=== PATIENT | female | born 1950 | race American Indian/Alaskan Native ===

== ENCOUNTER 2021-01-27 09:34 | Outpatient (CLI) | payer OTHER ==
--- NOTE | 2021-01-27 12:31 | Mammography Report ---
DIGITAL SCREENING MAMMOGRAM WITH CAD, 01/27/2021 CLINICAL INFORMATION / INDICATION: Routine screening mammography. SCREENING MAMMOGRAM TECHNIQUE: Digital bilateral 2D mammography was obtained in the craniocaudal and mediolateral obliqu e projections. This examination was interpreted with the benefit of Computer-Aided Detection analysis . COMPARISON: None currently available. FINDINGS: Breast Density: The breasts are heterogeneously dense, which may obscure small masses. No dominant mass, suspicious calcifications, or architectural distortion in either breast. There are mild benign breast arterial calcifications bilaterally. IMPRESSION: No mammographic evidence of malignancy. Follow up recommendation: Routine yearly BI-RADS Category 2: Benign. A "normal" or negative report should not discourage follow up or biopsy of a clinically significant f inding. A written summary of these findings will be mailed to the patient. The patient will be entered into a mammography reporting system which will generate a reminder letter for the patient's next appointmen t at the appropriate interval. The [employer] recommends yearly mammograms starting at age 40 and continuing as l corey as a woman is in good health. Breast MRI is recommended for women with an approximate 20-25% or greater lifetime risk of breast cancer, including women with a strong family history of breast or ova man cancer or who have been treated for Hodgkin's disease. Signer Name: Matt Montoya MD Signed: 01/27/2021 11:34 AM Workstation Name: [id number]
== END 2021-01-27 09:35 | disposition home or self-care (01) ==
LOC: MAMMO 09:34
PROVIDERS: ATTEND Internal Medicine
DX: Z12.31 Encounter for screening mammogram for malignant neoplasm of breast (principal); N64.89 Other specified disorders of breast
CPT/HCPCS: 77067

== ENCOUNTER 2021-03-08 | Inpatient (IN) | payer OTHER | END 2021-03-17 15:00 | DRG 73 | PROVIDERS: ADMIT Hospitalist | DX: G90.8 Other disorders of autonomic nervous system (principal); N17.0 Acute kidney failure with tubular necrosis; Z88.6 Allergy status to analgesic agent; Z88.0 Allergy status to penicillin; Z20.822 Contact with and (suspected) exposure to COVID-19; Z86.73 Personal history of transient ischemic attack (TIA), and cerebral infarction without residual deficits; M19.90 Unspecified osteoarthritis, unspecified site; M10.9 Gout, unspecified; Z90.710 Acquired absence of both cervix and uterus; I12.9 Hypertensive chronic kidney disease with stage 1 through stage 4 chronic kidney disease, or unspecified chronic kidney disease; N18.30 Chronic kidney disease, stage 3 unspecified; H93.13 Tinnitus, bilateral; E87.8 Other disorders of electrolyte and fluid balance, not elsewhere classified; R07.89 Other chest pain ==

== ENCOUNTER 2021-03-17 11:37 | Inpatient (IN) | payer OTHER ==
[2021-03-17] MEDS ORDERED: POLYETHYLENE GLYCOL 3350 17 GM POWDER PO PRN (12:32)
[2021-03-17] MEDS ORDERED: ALBUTEROL 2.5 MG/3 ML NEBU IH PRN (12:32)
[2021-03-17] MEDS ORDERED: ONDANSETRON 4 MG ODT TAB PO PRN (12:32)
[2021-03-17] MEDS: HEPARIN 5,000 UNIT/1 ML VIAL SUB-Q SCH ×2 (18:56→21:39)
[2021-03-17] MEDS: HYDROcodone/ACETAMINOPHEN 5-325 MG TAB PO PRN (19:49)
[2021-03-17] MEDS: ACETAMINOPHEN 325 MG TAB PO PRN (19:49)
[2021-03-17] MEDS: SODIUM BICARBONATE 650 MG TAB PO SCH (21:37)
[2021-03-17] MEDS: hydrALAZINE 20 MG/1 ML INJ IV PRN (21:37)
[2021-03-17] MEDS: MECLIZINE 25 MG TAB PO SCH (21:37)
[2021-03-17] MEDS: METOPROLOL TARTRATE 50 MG TAB PO SCH (21:37)
[2021-03-18] MEDS: hydrALAZINE 20 MG/1 ML INJ IV PRN (04:37)
[2021-03-18] MEDS: ACETAMINOPHEN 325 MG TAB PO PRN (04:42)
[2021-03-18] MEDS: HYDROcodone/ACETAMINOPHEN 5-325 MG TAB PO PRN ×3 (04:43→20:35)
[2021-03-18 05:01] LABS: Basophils % (Auto) 0.5 % (0.0-1.8); Eosinophils # (Auto) 0.2 K/mm3 (0.0-0.4); Eosinophils % (Auto) 2.7 % (0.0-4.3); Hematocrit 34.2 % (30.3-42.9); Hemoglobin 11.9 gm/dl (10.1-14.3); Lymphocytes # (Auto) 2.2 K/mm3 (1.2-5.4); Mean Corpuscular HGB Conc 35 % (30-34); Mean Corpuscular Volume 103 fl (79-97); Monocytes # (Auto) 0.8 K/mm3 (0.0-0.8); Monocytes % (Auto) 8.3 % (0.0-7.3); Platelet Count 272 K/mm3 (140-440); Red Blood Count 3.33 M/mm3 (3.65-5.03); Red Cell Distribution Width 13.5 % (13.2-15.2)
[2021-03-18] MEDS: HEPARIN 5,000 UNIT/1 ML VIAL SUB-Q SCH ×3 (05:05→23:29)
[2021-03-18] MEDS: MECLIZINE 25 MG TAB PO SCH ×3 (05:05→23:21)
[2021-03-18 05:18] LABS: Alanine Aminotransferase 17 units/L (7-56); Albumin 3.8 g/dL (3.9-5); BUN/Creatinine Ratio 14; Blood Urea Nitrogen 14 mg/dL (7-17); Calcium 8.3 mg/dL (8.4-10.2); Hemolysis Index 2
[2021-03-18] MEDS: SODIUM BICARBONATE 650 MG TAB PO SCH ×2 (08:28→23:20)
[2021-03-18] MEDS: CLOPIDOGREL 75 MG TAB PO SCH (08:28)
[2021-03-18] MEDS: PANTOPRAZOLE 40 MG TAB PO SCH (08:28)
[2021-03-18] MEDS: LOSARTAN 50 MG TAB PO SCH (08:29)
[2021-03-18] MEDS: METOPROLOL TARTRATE 50 MG TAB PO SCH ×2 (08:29→21:45)
[2021-03-18] MEDS: allopurinoL 100 MG TAB PO SCH (08:32)
--- NOTE | 2021-03-18 09:40 | History and Physical Report ---
History of Present Illness Date: 03/18/21 Date of admission: 03/17/21 12:29 Chief Complaint: Vestibular dysfunction History of present illness: 70-year-old female who was admitted on 03/05/2021 for persistent dizziness and nausea and vomiting. Patient has a history of CVA, and initial CT head showed did not show any signs of acute CVA noted. Patient was noted to have chest pain and a nuclear medicine stress test was performed with results showing no ST changes and no chest pain. Brain MRI was performed showing moderate parenchymal volume loss, microvascular ischemic changes and no indication of recent infarct. Patient was started on meclizine 50 mg every 8 hours. Home antihypertensives were changed. Patient's blood pressure on the acute side has been labile ranging from systolic of 130s to 180s. After admission last night patient did have blood pressure of 221/112 for which as needed hydralazine was given. I was notified this a.m. of the blood pressure value. I will need to adjust blood pressure medications quickly in order to get the patient's blood pressure back under control. Currently her pressure is 138/65. Patient does have mild diet counselor oumou kidney disease and was on metoprolol, losartan, hydralazine, amlodipine at home (does not remember dosing however did give me the name of Dr. Guillaume at the [facility] in [place], will attempt to call and confirm dosage), however on the acute care side she was on metoprolol and losartan only. We will look to restart home antihypertensives and monitor blood pressure closely for improvement while trying to avoid hypotensive episodes. After the patient was medically stabilized they were transferred for further rehabilitation. All available medical records have been reviewed. Plan of care was discussed with patient. Patient does complain of low back pain for which she says she has recently undergone an epidural steroid injection which proceeds all of her issues that she currently complains of. Pain is achy and throbbing as well as sometimes sharp does go down the right leg. Straight leg raise is negative. Pain is relieved by [place] at times however she does state that the current dose is not necessarily controlling her pain. Patient also has right knee pain which she relates to a prior injury from years back, will look to obtain knee x-ray if these have not been done at the [facility] previously. She does state that she is currently feeling dizzy however does not have any nausea or vomiting and the dizziness is subsiding with being in a reclined position on the bed. Headaches are persistent and not assisted by Fioricet. Past History Past Medical History: hypertension, stroke, other (CKD3, gout) Past Surgical History: appendectomy, hysterectomy, Other (shoulder surgery) Social history: Lives alone. denies: smoking (Former), alcohol abuse (Former use, not abuse) Family history: diabetes Medications and Allergies Allergies Allergy/AdvReac Type Severity Reaction Status Date / Time aspirin Allergy Nausea Verified 02/12/15 04:41 codeine Allergy Itching Verified 02/12/15 04:41 Penicillins Allergy Hives Verified 02/12/15 04:41 Home Medications Medication Instructions Recorded Confirmed Last Taken Type Metoprolol 50 mg PO BID 02/12/15 03/18/21 03/05/21 History Plavix 75 mg PO DAILY 02/12/15 03/18/21 03/05/21 History hydrALAZINE 50 mg PO TID 02/12/15 03/18/21 03/05/21 History allopurinoL [Zyloprim] 100 mg PO DAILY 05/28/15 03/18/21 03/05/21 History amLODIPine 10 mg PO DAILY 05/28/15 03/18/21 03/05/21 History ALPRAZolam [Xanax TAB] 0.25 mg PO TID PRN #20 tab 05/31/15 03/18/21 Unknown Rx Omeprazole [PriLOSEC] 40 mg PO QPM #30 cap 05/31/15 03/18/21 03/05/21 Rx Losartan 25 mg PO QDAY 03/06/21 03/18/21 03/05/21 History Sodium Bicarbonate 650 mg PO BID 03/06/21 03/18/21 03/05/21 History AtorvaSTATin [Lipitor] 40 mg PO QHS tablet 03/12/21 03/18/21 Unknown Rx Butalb/Acetamin/Caff 50-325-40 1 tab PO TID PRN tablet 03/12/21 03/18/21 Unk nown Rx [Fioricet 50-325-40] Clopidogrel [Plavix] 75 mg PO QDAY tablet 03/12/21 03/18/21 Unknown Rx Losartan [Cozaar] 25 mg PO QDAY tablet 03/12/21 03/18/21 Unknown Rx Meclizine [Antivert] 50 mg PO Q8HR tablet 03/12/21 03/18/21 Unknown Rx Metoprolol [Lopressor TAB] 50 mg PO BID tablet 03/12/21 03/18/21 Unknown Rx Sodium Bicarbonate 650 mg PO BID tablet 03/12/21 03/18/21 Unknown Rx hydrALAZINE [Apresoline TAB] 50 mg PO TID tablet 03/12/21 03/18/21 Unknown Rx traMADoL [Ultram 50 MG tab] 50 mg PO Q6H PRN tablet 03/12/21 03/18/21 Unknown Rx Active Meds: Active Medications Acetaminophen (Acetaminophen 325 Mg Tab) 650 mg PO Q6H PRN PRN Reason: Non Cardiac Pain or Temp>100.5 Last Admin: 03/18/21 04:42 Dose: 650 mg Documented by: Acetaminophen/Butalbital/Caffeine (Butalb/Acetaminophen/Caffeine Tab) 1 tab PO Q4H PRN PRN Reason: Headache Hydrocodone Bitart/Acetaminophen (Hydrocodone/Acetaminophen 5-325 Mg Tab) 1 each PO Q6H PRN PRN Reason: Pain, Moderate (4-6) Last Admin: 03/18/21 04:43 Dose: 1 each Documented by: Albuterol (Albuterol 2.5 Mg/3 Ml Nebu) 2.5 mg IH Q4HRT PRN PRN Reason: Shortness Of Breath Allopurinol (Allopurinol 100 Mg Tab) 100 mg PO QDAY [facility] Last Admin: 03/18/21 08:32 Dose: 100 mg Documented by: Atorvastatin Calcium (Atorvastatin 40 Mg Tab) 40 mg PO QHS [facility] Last Admin: 03/17/21 21:37 Dose: 40 mg Documented by: Bisacodyl (Bisacodyl 10 Mg Rect Supp) 10 mg [facility] QDAY PRN PRN Reason: Constipation Clopidogrel Bisulfate (Clopidogrel 75 Mg Tab) 75 mg PO QDAY [facility] Last Admin: 03/18/21 08:28 Dose: 75 mg Documented by: Heparin Sodium (Porcine) (Heparin 5,000 Unit/1 Ml Vial) 5,000 unit SUB-Q Q8HR [facility] Last Admin: 03/18/21 05:05 Dose: 5,000 unit Documented by: Hydralazine HCl (Hydralazine 20 Mg/1 Ml Inj) 10 mg IV Q4HR PRN PRN Reason: Hypertension Last Admin: 03/18/21 04:37 Dose: 10 mg Documented by: Losartan Potassium (Losartan 50 Mg Tab) 100 mg PO QDAY [facility] Last Admin: 03/18/21 08:29 Dose: 100 mg Documented by: Meclizine HCl (Meclizine 25 Mg Tab) 50 mg PO Q8HR [facility] Last Admin: 03/18/21 05:05 Dose: 50 mg Documented by: Metoprolol Tartrate (Metoprolol Tartrate 50 Mg Tab) 50 mg PO BID [facility] Last Admin: 03/18/21 08:29 Dose: 50 mg Documented by: Ondansetron HCl (Ondansetron 4 Mg Odt Tab) 4 mg PO Q8H PRN PRN Reason: Nausea And Vomiting Pantoprazole Sodium (Pantoprazole 40 Mg Tab) 40 mg PO QDAC [facility] Last Admin: 03/18/21 08:28 Dose: 40 mg Documented by: Polyethylene Glycol (Polyethylene Glycol 3350 17 Gm Powder) 17 gm PO QDAY PRN PRN Reason: Constipation Sodium Bicarbonate (Sodium Bicarbonate 650 Mg Tab) 650 mg PO BID [facility] Last Admin: 03/18/21 08:28 Dose: 650 mg Documented by: Review of Systems All systems: negative (ROS negative for 10 systems except as noted below with pertinent positives and negatives.) Constitutional: no fever, no chills Ears, nose, mouth and throat: tinnitis, no decreased hearing Cardiovascular: no chest pain, no palpitations, no rapid/irregular heart beat, no edema Respiratory: no cough, no shortness of breath Gastrointestinal: no abdominal pain, no nausea, no vomiting, no diarrhea, no constipation Musculoskeletal: shooting leg pain, gait dysfunction, arthritis Integumentary: no rash, no pruritis, no wounds Neurological: vertigo, headaches, gait dysfunction Psychiatric: no confusion, no irritability Exam - Exam Narrative exam: MUSCULOSKELETAL SPECIALTY EXAM CONSTITUTIONAL: Well developed, well nourished, appropriately groomed LYMPHATIC: No appreciable abnormalities palpable in neck EENT: EOMI. Oropharynx clear. Hearing intact to soft voice RESPIRATORY: Clear to auscultation bilaterally, no increased work of breathing CARDIOVASCULAR: Regular Rate/ Rhythm, no swelling, edema or tenderness in BUE or BLE. All extremities warm. GI: + bowel sounds, soft, NTTP, nondistended. INTEGUMENTARY: Normal, no lesion, rash, masses or bruising noted in extremities. MUSCULOSKELETAL: BUE and BLE normal without defect, crepitus, subluxation, effusion, arthritic changes or TTP. BUE 4+/5, good ROM, with normal tone. BLE 4+/5 good ROM, with normal tone Straight leg raise negative bilaterally NEURO: Slight left facial droop, tongue protrudes left. Sensation intact in all extremities with decreased sensation on the right extremities. Reflexes 3+ bilaterally at biceps, brachioradialis and patella. No clonus at ankles. Coordination intact in BUE. No tremor noted in 4 extremities. POSTURE and GAIT: Sitting posture good. Balance and gait deferred until seen with therapy. PSYCH: Alert, oriented x3, affect appears normal. Insight appears intact. - Constitutional Vitals: Vital Signs - 12hr 03/17/21 03/18/21 03/18/21 21:37 00:17 02:34 Temperature Pulse Rate 67 70 70 Respiratory 16 Rate Blood Pressure 177/82 170/77 Blood Pressure 149/65 [Left] O2 Sat by Pulse 98 Oximetry 03/18/21 03/18/21 03/18/21 04:25 04:35 04:37 Temperature 122.0 F H 97.9 F Pulse Rate 75 Respiratory 16 Rate Blood Pressure 221/112 189/87 Blood Pressure [Left] O2 Sat by Pulse 94 Oximetry 03/18/21 03/18/21 03/18/21 06:14 06:24 07:22 Temperature 97.9 F 98.8 F Pulse Rate 69 Respiratory 18 Rate Blood Pressure 138/65 Blood Pressure 153/87 [Left] O2 Sat by Pulse 95 Oximetry 03/18/21 08:29 Temperature Pulse Rate 69 Respiratory Rate Blood Pressure 138/65 Blood Pressure [Left] O2 Sat by Pulse Oximetry - Labs CBC & Chem 7: 03/18/21 04:09 03/18/21 04:09 Labs: Laboratory Results - last 72 hr 03/18/21 03/18/21 04:09 04:09 WBC 9.2 RBC 3.33 L Hgb 11.9 Hct 34.2 MCV 103 H MCH 36 H MCHC 35 H RDW 13.5 Plt Count 272 Lymph % (Auto) 24.0 [place] % (Auto) 8.3 H Eos % (Auto) 2.7 Baso % (Auto) 0.5 Lymph # (Auto) 2.2 [place] # (Auto) 0.8 Eos # (Auto) 0.2 Baso # (Auto) 0.0 Seg Neutrophils % 64.5 Seg Neutrophils # 5.9 Sodium 139 Potassium 3.8 Chloride 104.5 Carbon Dioxide 22 Anion Gap 16 BUN 14 Creatinine 1.0 Estimated GFR > 60 BUN/Creatinine Ratio 14 Glucose 109 H Calcium 8.3 L Total Bilirubin 0.30 AST 15 ALT 17 Alkaline Phosphatase 52 Total Protein 6.7 Albumin 3.8 L Albumin/Globulin Ratio 1.3 Assessment and Plan Assessment and plan: Patient was assessed and evaluated for Acute Inpatient Rehab Unit. Due to the patients above-mentioned medical complexity, along with decreased functional mobility and self care, this patient continues to require and be appropriate for a comprehensive, multidisciplinary [id number] rehabilitation program. These needs cannot be met in an outpatient or other less intensive setting. The patient would continue to benefit from skilled therapy intervention for at least 3 hours per day, five days a week, with techniques specific to the needs of the patient to improve function, activities of daily living, and reintegration into the community. The patient continues to require: -- OT to improve ROM, self-care, and learn use of adaptive equipment -- PT to improve strength and balance, functional transfers, and ambulation with energy conservation techniques to improve functional mobility -- 24 hour RN to ensure and prevent skin breakdown, promote progressive independence while ensuring safety, ensure education regarding medications, and incorporation of the rehabilitation at the bedside -- 24 hour Manager Engagement to coordinate this interdisciplinary program, and to manage/prevent complications as a result of the patients medical comorbidities. -Plan of care by day 4 -Weekly team conferences With such a program, there is a reasonable certainty that the goals individu alized for this patient can be achieved within the specified length of stay. Vestibular dysfunction: Continue therapy and improve patient's ability to perform ADLs and ambulation without loss of balance. Meclizine will be continued at current dosing with eye towards reducing dose as able. Vestibular therapy has been ordered. Old CVA: Continue secondary stroke prevention measures including antiplatelet, statin, blood pressure control. Hypertensive emergency: Medications were adjusted on acute care side. Patient is uncertain of dosing but does know the name of the medication she is taking prior to admission which include losartan, amlodipine, hydralazine and metoprolol. Am trying to contact Dr. Guillaume at [facility] [place] for confirmation of the patient's medication list. She is currently being controlled on medications that were started at the acute care side as well as as needed hydralazine. [facility] is currently taking losartan 100 mg daily, amlodipine 10 mg daily, hydralazine 50 mg 3 times daily, metoprolol 75 mg twice daily. We will restart these medications and monitor blood pressure CKD 3: Continue to monitor renal function which appears to be fairly well controlled currently. This was diagnosed by an outside medication aide, avoid nephrotoxic medications. Nephrology consult if needed. Headache: Patient states that Fioricet is not touching the headache but the [place] does work. She is requesting to have higher doses of [place] for both the headache and the back pain and we will increase that for a brief period of time as discussed with the patient. Back pain with radiation down the right leg: [facility], will attempt to get results of that imaging. Also underwent epidural steroid injection which she relates to the start of current symptoms. We will continue therapy and attempt symptomatic improvement. Right knee pain: We will try to find out if the [facility] has performed any knee x-rays in the past. This looks and feels like arthritis, will look to start Voltaren gel and further modalities to improve pain and gather x-rays if these have not been done recently. ADL dysfunction: OT will work on improving ability to perform ADLs (including assistive devices) to increase independence and decrease caregiver burden and improve functional transfers and mobility training. Difficulty walking: PT will work on gait training and proper use of assistive devices and advance as appropriate to use of stairs and outside ambulation on uneven surfaces. Unsteadiness on feet: PT will work on improving static and dynamic sitting and standing balance as well as proper use of assistive devices to decrease risk of falls. Abnormality of gait: PT will work to improve safety and efficiency of gait through neuromotor training and gait training along with instruction on proper use of assistive devices. Muscle weakness: PT & OT will work on strengthening exercises to improve functional strength including mixture of closed and open kinetic chain exercises. Debility: PT & OT will work on improving overall functional status to improve participation with ADLs, mobility and social involvement. Fatigue: PT & OT will work on improving endurance through aerobic exercises and therapeutic activity while monitoring patients tolerance for activity and vital signs as needed. DVT ppx: Heparin 3 times daily Pain: Continue physical modalities in therapy and pain medications as needed to achieve functional pain control. Sleep: Monitor and address as needed. Bowel: Monitor and address as needed. Appetite: Monitor and address as needed. Discharge planning: Pending therapy progress and care plan meeting. Will continue discussion with therapy team, SW, patient and family. Restrictions/ Precautions: Falls WB status: FWB Functional Hx: ADLs: Independent Cognition: Independent Mobility: No AD Barriers to Discharge: Decreased mobility and ability to perform self care, balance deficits, weakness Estimated Length of Stay: 1014 days Discharge Destination: Home alone POST ADMISSION PHYSICIAN EVALUATION I have examined the patient and find that functional status, medical condition and appropriateness for IR[facility] admission are essentially unchanged from those described in the preadmission screening. Will monitor for worsening disequilibrium, falls, DVT/PE, bowel and bladder complications and complications due to hypertensive emergency, renal disease, secondary stroke, gout and electrolyte abnormalities. Will attempt to avoid occurrence of these issues or treat them if they present themselves.
--- NOTE | 2021-03-18 13:50 | XRay Report ---
RIGHT KNEE 3 VIEWS INDICATION: knee pain. COMPARISON: None. IMPRESSION: No acute osseous or soft tissue abnormality. Minimal tibial spine spurring and retrop atellar spurring are identified. Signer Name: Deniz Torres Jr, MD Signed: 03/18/2021 1:45 PM Workstation Name: [id number]
[2021-03-18] MEDS: hydrALAZINE 25 MG TAB PO SCH ×2 (13:56→21:45)
[2021-03-19] MEDS: hydrALAZINE 20 MG/1 ML INJ IV PRN (01:44)
[2021-03-19] MEDS: MECLIZINE 25 MG TAB PO SCH ×3 (05:46→22:32)
[2021-03-19] MEDS: hydrALAZINE 25 MG TAB PO SCH ×3 (05:46→22:32)
[2021-03-19] MEDS: HEPARIN 5,000 UNIT/1 ML VIAL SUB-Q SCH ×3 (05:48→22:33)
[2021-03-19] MEDS: SODIUM BICARBONATE 650 MG TAB PO SCH ×2 (08:43→22:33)
[2021-03-19] MEDS: HYDROcodone/ACETAMINOPHEN 10-325MG TAB PO PRN ×3 (08:43→22:33)
[2021-03-19] MEDS: allopurinoL 100 MG TAB PO SCH (08:44)
[2021-03-19] MEDS: LOSARTAN 50 MG TAB PO SCH (08:44)
[2021-03-19] MEDS: METOPROLOL TARTRATE 50 MG TAB PO SCH ×2 (08:44→22:32)
[2021-03-19] MEDS: amLODIPine 10 MG TAB PO SCH (08:44)
[2021-03-19] MEDS: PANTOPRAZOLE 40 MG TAB PO SCH (08:45)
[2021-03-19] MEDS: CLOPIDOGREL 75 MG TAB PO SCH (08:45)
--- NOTE | 2021-03-19 11:53 | Progress Note ---
Subjective Date of service: 03/19/21 Principal diagnosis: Vestibular dysfunction Interval history: 70-year-old female who was admitted on 03/05/2021 for persistent dizziness and nausea and vomiting. Patient has a history of CVA, and initial CT head showed did not show any signs of acute CVA noted. Patient was noted to have chest pain and a nuclear medicine stress test was performed with results showing no ST changes and no chest pain. Brain MRI was performed showing moderate parenchymal volume loss, microvascular ischemic changes and no indication of recent infarct. Patient was started on meclizine 50 mg every 8 hours. Home antihypertensives were changed. Patient's blood pressure on the acute side has been labile ranging from systolic of 130s to 180s. After admission last night patient did have blood pressure of 221/112 for which as needed hydralazine was given. I was notified this a.m. of the blood pressure value. I will need to adjust blood pressure medications quickly in order to get the patient's blood pressure back under control. Currently her pressure is 138/65. Patient does have mild chronic kidney disease and was on metoprolol, losartan, hydralazine, amlodipine at home (does not remember dosing however did give me the name of Dr. Guillaume at the [facility] in [place], will attempt to call and confirm dosage), however on the acute care side she was on metoprolol and losartan only. We will look to restart home antihypertensives and monitor blood pressure closely for improvement while trying to avoid hypotensive episodes. Interval History: Patient is participating in therapy and making reasonable progress. Taking rest breaks as needed. +BM. Denies pain, palpitations, dyspnea, cough, N/V, weakness, or joint pain. Vestibular dysfunction: Continue therapy for improvement in balance, ADLs and ambulation. Vestibular therapy as patient tolerates it. Continue meclizine. Chronic CVA: Continue secondary stroke prevention measures. No signs of wor sening neurologic function, shoulder-hand syndrome, post drug depression. Hypertension with initial hypertensive emergency: Medications have been adjusted to include patient's home dosing after calling the [facility] that [facility]. Initially blood pressure is slightly improved this morning however the patient did have to have IV hydralazine last night. We will continue to monitor blood pressure on a close basis and adjust medications as needed to control her blood pressure. Goal less than 140/90 and avoid hypotension. CKD 3: Patient's renal labs have been normal since admission. She states that she was diagnosed with CKD 3 by an outside powerhouse attendant. We will continue to avoid any nephrotoxic medications and monitor for worsening renal function. Headache: Slightly better today, still does not respond well to Fioricet R Tylenol which the patient has used in the past on the acute care side as well as with us. Does state that [place] seems to allow her to at least tolerate the pain and drift off to sleep. Have discussed with her that we would not build to continue with increased dose of [place] ongoing and that we will continue to monitor and try to address the issues causing the headache. Back pain with radiation down right leg: Negative straight leg raise. [facility] have any recent imaging of the patient's back. Patient does state that recently she received lumbar epidural steroid injection which is in part what she believes caused some of the issues she is currently having. I do not know that the [place] is connected to her current issues but we will continue to watch for any overt signs of issues coming from her low back and address as needed. If the patient does need further work-up and care she will need to have that done as an outpatient to include further MRIs and or other injections. May benefit from needle EMG/NCS. Right knee pain: X-ray ordered yesterday, image and report reviewed personally. Her knee actually looks to be in very good shape, uncertain why she had so much pain with that yesterday. Do not see joint space narrowing are significant arthritis, per the report there is minimal spurring noted in a couple of areas. Did discuss with the patient and we can trial Voltaren gel to see if that im proves her knee pain. All records, vitals, labs and medications were reviewed. No other issues per patient, nursing or therapy. Objective - Exam Narrative Exam: MUSCULOSKELETAL SPECIALTY EXAM CONSTITUTIONAL: Well developed, well nourished, appropriately groomed EENT: Hearing intact to soft voice RESPIRATORY: Clear to auscultation bilaterally, no increased work of breathing CARDIOVASCULAR: Regular Rate/ Rhythm, no swelling, edema or tenderness in BUE or BLE. All extremities warm. GI: + bowel sounds, soft, NTTP, nondistended. INTEGUMENTARY: Normal, no lesion, rash, masses or bruising noted in extremities. MUSCULOSKELETAL: BUE and BLE normal without defect, crepitus, subluxation, effusion, arthritic changes or TTP. BUE 4+/5, good ROM, with normal tone. BLE 4+/5 good ROM, with normal tone NEURO: Slight left facial droop, tongue protrudes left. Sensation intact in all extremities with decreased sensation on the right extremities. No tremor noted in 4 extremities. POSTURE and GAIT: Sitting posture good. Balance and gait deferred until seen with therapy. PSYCH: Alert, oriented x3, affect appears normal. Insight appears intact. - Constitutional Vitals: Vital Signs - 12hr 03/19/21 03/19/21 03/19/21 01:44 05:11 05:46 Temperature 98.5 F Pulse Rate 78 Respiratory 16 Rate Respiratory Rate [chest pain] Blood Pressure 167/64 142/72 Blood Pressure 142/72 [Left] O2 Sat by Pulse 97 Oximetry 03/19/21 03/19/21 03/19/21 07:29 08:43 08:44 Temperature 98.9 F Pulse Rate 70 70 Respiratory 18 20 Rate Respiratory Rate [chest pain] Blood Pressure 156/69 151/69 Blood Pressure [Left] O2 Sat by Pulse 96 Oximetry 03/19/21 10:00 Temperature Pulse Rate Respiratory Rate Respiratory 18 Rate [chest pain] Blood Pressure Blood Pressure [Left] O2 Sat by Pulse Oximetry - Allied health notes Allied health notes reviewed: nursing, PT, OT FIMS assessment as documented by PT/OT/ST: Grooming Patient cleans teeth/dentures: Yes Patient [place]/brushes hair: Yes Patient washes, rinses and Yes dries face: Patient washes, rinses and Yes dries hands: Patient performs (no make-up/ 4/4 (100%) shaving): Grooming FIM Score 5. Supervision ([place] applies toothpaste or opens containers.) Toileting Toileting Device Commode over Toilet,Grab Bar Patient able to: Adjust clothes before,Clean self,Adjust clothes after Patient able to perform: 3/3 (100%) Toileting FIM Score 4. Minimal Assistance (Patient = 75% or more. Needs touching.) Social interaction/Memory/Problem solving Social Interaction FIM Score 5. Supervision (Needs supv. <10%. Needs encouragement to participate.) Memory FIM Score 5. Supervision (Needs cueing <10%, stressful/ unfamiliar situations.) Problem Solving FIM Score 5. Supervision (Needs cueing <10% to solve routine problems.) Transfers Mode of Locomotion: Wheelchair Bed/Chair/Wheelchair Transfers 4. Minimal Assistance (Patient = 75% or more. FIM Score Needs touching.) Locomotion- walk/wheelchair Ambulation Distance 170 Eating Eating FIM Score 5. Supervision/Set-Up (Needs help w/ containers, cutting meat, etc.) Dressing-Upper body Patient retrieves clothing Yes items: Upper Body Dressing FIM Score 5. Supv./Set-Up ([place] sets out clothes or applies pros./orth.) Dressing-lower body Patient retrieves clothing Yes items: Lower Body Dressing FIM Score 5. Supv./Set-Up ([place] sets out clothes or applies pros./orth.) - Labs CBC & Chem 7: 03/18/21 04:09 03/18/21 04:09 Labs: Laboratory Results - last 72 hr 03/18/21 03/18/21 04:09 04:09 WBC 9.2 RBC 3.33 L Hgb 11.9 Hct 34.2 MCV 103 H MCH 36 H MCHC 35 H RDW 13.5 Plt Count 272 Lymph % (Auto) 24.0 [place] % (Auto) 8.3 H Eos % (Auto) 2.7 Baso % (Auto) 0.5 Lymph # (Auto) 2.2 [place] # (Auto) 0.8 Eos # (Auto) 0.2 Baso # (Auto) 0.0 Seg Neutrophils % 64.5 Seg Neutrophils # 5.9 Sodium 139 Potassium 3.8 Chloride 104.5 Carbon Dioxide 22 Anion Gap 16 BUN 14 Creatinine 1.0 Estimated GFR > 60 BUN/Creatinine Ratio 14 Glucose 109 H Calcium 8.3 L Total Bilirubin 0.30 AST 15 ALT 17 Alkaline Phosphatase 52 Total Protein 6.7 Albumin 3.8 L Albumin/Globulin Ratio 1.3 Assessment and Plan Vestibular dysfunction: Continue therapy and improve patient's ability to perform ADLs and ambulation without loss of balance. Meclizine will be continued at current dosing with eye towards reducing dose as able. Vestibular therapy has been ordered. Old CVA: Continue secondary stroke prevention measures including antiplatelet, statin, blood pressure control. Hypertensive emergency: [facility], patient is currently taking losartan 100 mg daily, amlodipine 10 mg daily, hydralazine 50 mg 3 times daily, metoprolol 75 mg twice daily. We will restart these medications and monitor blood pressure and adjust as needed for normotension with goal of <140/90 while avoiding hypotension. CKD 3: Continue to monitor renal function which appears to be fairly well controlled currently. This was diagnosed by an outside powerhouse attendant, avoid nephrotoxic medications. Nephrology consult if needed. Headache: Patient states that Fioricet is not touching the headache but the [place] does work. She is requesting to have higher doses of [place] for both the headache and the back pain and we will increase that for a brief period of time as discussed with the patient. Back pain with radiation down the right leg: Apparently patient had a MRI at the outside [facility], will attempt to get results of that imaging. Also underwent epidural steroid injection which she relates to the start of current symptoms. We will continue therapy and attempt symptomatic improvement. Right knee pain: We will try to find out if the [facility] has performed any knee x-rays in the past. This looks and feels like arthritis, will look to start Voltaren gel and further modalities to improve pain and gather x-rays if these have not been done recently. ADL dysfunction: OT will work on improving ability to perform ADLs (including assistive devices) to increase independence and decrease caregiver burden and improve functional transfers and mobility training. Difficulty walking: PT will work on gait training and proper use of assistive devices and advance as appropriate to use of stairs and outside ambulation on uneven surfaces. Unsteadiness on feet: PT will work on improving static and dynamic sitting and standing balance as well as proper use of assistive devices to decrease risk of falls. Abnormality of gait: PT will work to improve safety and efficiency of gait through neuromotor training and gait training along with instruction on proper use of assistive devices. Muscle weakness: PT & OT will work on strengthening exercises to improve functional strength including mixture of closed and open kinetic chain exercises. Debility: PT & OT will work on improving overall functional status to improve participation with ADLs, mobility and social involvement. Fatigue: PT & OT will work on improving endurance through aerobic exercises and therapeutic activity while monitoring patients tolerance for activity and vital signs as needed. DVT ppx: Heparin 3 times daily Pain: Continue physical modalities in therapy and pain medications as needed to achieve functional pain control. Sleep: Monitor and address as needed. Bowel: Monitor and address as needed. Appetite: Monitor and address as needed. Discharge planning: Pending therapy progress and care plan meeting. Will continue discussion with therapy team, SW, patient and family. Restrictions/ Precautions: Falls WB status: FWB Functional Hx: ADLs: Independent Cognition: Independent Mobility: No AD Barriers to Discharge: Decreased mobility and ability to perform self care, balance deficits, weakness Estimated Length of Stay: 1014 days Discharge Destination: Home alone
[2021-03-19] MEDS: DICLOFENAC SODIUM 1% TOPICAL GEL 100 GM TP SCH ×2 (15:11→20:00)
[2021-03-20] MEDS: HEPARIN 5,000 UNIT/1 ML VIAL SUB-Q SCH ×3 (06:40→22:22)
[2021-03-20] MEDS: MECLIZINE 25 MG TAB PO SCH ×3 (06:40→22:20)
[2021-03-20] MEDS: hydrALAZINE 25 MG TAB PO SCH ×3 (06:40→22:21)
[2021-03-20] MEDS: allopurinoL 100 MG TAB PO SCH (09:30)
[2021-03-20] MEDS: SODIUM BICARBONATE 650 MG TAB PO SCH ×2 (09:30→22:20)
[2021-03-20] MEDS: METOPROLOL TARTRATE 50 MG TAB PO SCH ×2 (09:30→22:21)
[2021-03-20] MEDS: CLOPIDOGREL 75 MG TAB PO SCH (09:30)
[2021-03-20] MEDS: amLODIPine 10 MG TAB PO SCH (09:30)
[2021-03-20] MEDS: LOSARTAN 50 MG TAB PO SCH (09:30)
[2021-03-20] MEDS: PANTOPRAZOLE 40 MG TAB PO SCH (09:30)
[2021-03-20] MEDS: DICLOFENAC SODIUM 1% TOPICAL GEL 100 GM TP SCH ×3 (09:30→20:33)
--- NOTE | 2021-03-20 10:09 | Progress Note ---
Subjective Date of service: 03/20/21 Principal diagnosis: Vestibular dysfunction Interval history: 70-year-old female who was admitted on 03/05/2021 for persistent dizziness and nausea and vomiting. Patient has a history of CVA, and initial CT head showed did not show any signs of acute CVA noted. Patient was noted to have chest pain and a nuclear medicine stress test was performed with results showing no ST changes and no chest pain. Brain MRI was performed showing moderate parenchymal volume loss, microvascular ischemic changes and no indication of recent infarct. Patient was started on meclizine 50 mg every 8 hours. Home antihypertensives were changed. Patient's blood pressure on the acute side has been labile ranging from systolic of 130s to 180s. After admission last night patient did have blood pressure of 221/112 for which as needed hydralazine was given. I was notified this a.m. of the blood pressure value. I will need to adjust blood pressure medications quickly in order to get the patient's blood pressure back under control. Currently her pressure is 138/65. Patient does have mild chronic kidney disease and was on metoprolol, losartan, hydralazine, amlodipine at home (does not remember dosing however did give me the name of Dr. Guillaume at the [facility] in [place], will attempt to call and confirm dosage), however on the acute care side she was on metoprolol and losartan only. We will look to restart home antihypertensives and monitor blood pressure closely for improvement while trying to avoid hypotensive episodes. Interval History: Patient is participating in therapy and making reasonable progress. Taking rest breaks as needed. +BM. Denies pain, palpitations, dyspnea, cough, N/V, weakness, or joint pain. Vestibular dysfunction: Continue therapy for improvement in balance, ADLs and ambulation. Vestibular therapy as patient tolerates it. Continue meclizine. Patient states that dizziness is subsiding and much better when in bed, still giving her problems when standing with occasional loss of balance. We will asked therapy to do orthostatic checks to ensure that blood pressures not playing an issue as well. Chronic CVA: Continue secondary stroke prevention measures. No signs of worsening neurologic function, shoulder-hand syndrome, post stroke depression. Hypertension with initial hypertensive emergency: Medications have been adjusted to include patient's home dosing after calling the [facility] that [facility]. Did not require IV hydralazine last night. Appears that she is tolerating all doses of her current medication and blood pressure is improving. We will continue to monitor blood pressure on a close basis and adjust medications as needed to control her blood pressure. Goal less than 140/90 and avoid hypot ension. CKD 3: Patient's renal labs have been normal since admission. She states that she was diagnosed with CKD 3 by an outside project engineering manager. We will continue to avoid any nephrotoxic medications and monitor for worsening renal function. Headache: Headache seems to be variable, still does not respond well to Fioricet or Tylenol which the patient has used in the past on the acute care side as well as with us. Does state that [place] seems to allow her to at least tolerate the pain and drift off to sleep. Have discussed with her that we would not build to continue with increased dose of [place] ongoing and that we will continue to monitor and try to address the issues causing the headache. Back pain with radiation down right leg: Negative straight leg raise. [facility] have any recent [facility] of the patient's back. Patient does state that recently she received lumbar epidural steroid injection which is in part what she believes caused some of the issues she is currently having. I do not think that the [place] is connected to her current issues but we will continue to watch for any overt signs of issues coming from her low back and address as needed. If the patient does need further work-up and care she will need to have that done as an outpatient to include further MRIs and or other injections. May benefit from needle EMG/NCS. Right knee pain: X-ray ordered yesterday, image and report reviewed personally. Her knee actually looks to be in very good shape, uncertain why she had so much pain. Do not see joint space narrowing or significant arthritis, per the report there is minimal spurring noted in a couple of areas. Did discuss with the patient and we can trial Voltaren gel to see if that improves her knee pain. Seems slightly better today All records, vitals, labs and medications were reviewed. No other issues per patient, nursing or therapy. Approximately 40 minutes spent on patient care today with greater than 50% of that time utilized for counseling coordinating care. Discussed with the patient in depth her symptoms concerning vestibular dysfunction and possible etiologies for this as well as ongoing treatment options. Also discussed discharge, discharge planning and follow-up with neurology. Objective - Exam Narrative Exam: MUSCULOSKELETAL SPECIALTY EXAM CONSTITUTIONAL: Well developed, well nourished, appropriately groomed EENT: Hearing intact to soft voice RESPIRATORY: Clear to auscultation bilaterally, no increased work of breathing CARDIOVASCULAR: Regular Rate/ Rhythm, no swelling, edema or tenderness in BUE or BLE. All extremities warm. GI: + bowel sounds, soft, NTTP, nondistended. INTEGUMENTARY: Normal, no lesion, rash, masses or bruising noted in extremities. MUSCULOSKELETAL: BUE and BLE normal without defect, crepitus, subluxation, effusion, arthritic changes or TTP. BUE 4+/5, good ROM, with normal tone. BLE 4+/5 good ROM, with normal tone NEURO: Slight left facial droop, tongue protrudes left. Sensation intact in all extremities with decreased sensation on the right extremities. No tremor noted in 4 extremities. POSTURE and GAIT: Sitting posture good. PSYCH: Alert, oriented x3, affect appears normal. Insight appears intact. - Constitutional Vitals: Vital Signs - 12hr 03/19/21 03/19/21 03/20/21 22:32 22:33 00:15 Temperature 98.7 F Pulse Rate 79 79 Respiratory 18 16 Rate Blood Pressure 146/71 Blood Pressure 134/62 [Left] O2 Sat by Pulse 95 Oximetry 03/20/21 03/20/21 03/20/21 05:06 06:40 07:19 Temperature 97.7 F 98.0 F Pulse Rate 73 73 67 Respiratory 16 22 Rate Blood Pressure 132/71 140/64 Blood Pressure 132/71 [Left] O2 Sat by Pulse 99 96 Oximetry - Allied health notes Allied health notes reviewed: nursing, PT, OT FIMS assessment as documented by PT/OT/ST: Grooming Patient cleans teeth/dentures: Yes Patient [place]/brushes hair: Yes Patient washes, rinses and Yes dries face: Patient washes, rinses and Yes dries hands: Patient performs (no make-up/ 4/4 (100%) shaving): Grooming FIM Score 5. Supervision ([place] applies toothpaste or opens containers.) Toileting Toileting Device Commode over Toilet,Grab Bar Patient able to: Adjust clothes before,Clean self,Adjust clothes after Patient able to perform: 3/3 (100%) Toileting FIM Score 4. Minimal Assistance (Patient = 75% or more. Needs touching.) Social interaction/Memory/Problem solving Social Interaction FIM Score 5. Supervision (Needs supv. <10%. Needs encouragement to participate.) Memory FIM Score 5. Supervision (Needs cueing <10%, stressful/ unfamiliar situations.) Problem Solving FIM Score 5. Supervision (Needs cueing <10% to solve routine problems.) Transfers Mode of Locomotion: Wheelchair Bed/Chair/Wheelchair Transfers 4. Minimal Assistance (Patient = 75% or more. FIM Score Needs touching.) Locomotion- walk/wheelchair Ambulation Distance 170 Eating Eating FIM Score 5. Supervision/Set-Up (Needs help w/ containers, cutting meat, etc.) Dressing-Upper body Patient retrieves clothing Yes items: Upper Body Dressing FIM Score 5. Supv./Set-Up ([place] sets out clothes or applies pros./orth.) Dressing-lower body Patient retrieves clothing Yes items: Lower Body Dressing FIM Score 5. Supv./Set-Up ([place] sets out clothes or applies pros./orth.) - Labs CBC & Chem 7: 03/18/21 04:09 03/18/21 04:09 Labs: Laboratory Results - last 72 hr 03/18/21 03/18/21 04:09 04:09 WBC 9.2 RBC 3.33 L Hgb 11.9 Hct 34.2 MCV 103 H MCH 36 H MCHC 35 H RDW 13.5 Plt Count 272 Lymph % (Auto) 24.0 [place] % (Auto) 8.3 H Eos % (Auto) 2.7 Baso % (Auto) 0.5 Lymph # (Auto) 2.2 [place] # (Auto) 0.8 Eos # (Auto) 0.2 Baso # (Auto) 0.0 Seg Neutrophils % 64.5 Seg Neutrophils # 5.9 Sodium 139 Potassium 3.8 Chloride 104.5 Carbon Dioxide 22 Anion Gap 16 BUN 14 Creatinine 1.0 Estimated GFR > 60 BUN/Creatinine Ratio 14 Glucose 109 H Calcium 8.3 L Total Bilirubin 0.30 AST 15 ALT 17 Alkaline Phosphatase 52 Total Protein 6.7 Albumin 3.8 L Albumin/Globulin Ratio 1.3 Assessment and Plan Vestibular dysfunction: Continue therapy and improve patient's ability to perform ADLs and ambulation without loss of balance. Meclizine will be continued at current dosing with eye towards reducing dose as able. Vestibular therapy has been ordered. Old CVA: Continue secondary stroke prevention measures including antiplatelet, statin, blood pressure control. Hypertensive emergency: [facility], patient is currently taking losartan 100 mg daily, amlodipine 10 mg daily, hydralazine 50 mg 3 times daily, metoprolol 75 mg twice daily. We will restart these medications and monitor blood pressure and adjust as needed for normotension with goal of <140/90 while avoiding hypotension. CKD 3: Continue to monitor renal function which appears to be fairly well controlled currently. This was diagnosed by an outside project engineering manager, avoid nephrotoxic medications. Nephrology consult if needed. Headache: Patient states that Fioricet is not touching the headache but the [place] does work. She is requesting to have higher doses of [place] for both the headache and the back pain and we will increase that for a brief period of time as discussed with the patient. Back pain with radiation down the right leg: Apparently [facility], will attempt to get results of that imaging. Also underwent epidural steroid injection which she relates to the start of current symptoms. We will continue therapy and attempt symptomatic improvement. Right knee pain: We will try to find out if the [facility] has [facility] any [facility] in the past. This looks and feels like arthritis, will look to start Voltaren gel and further modalities to improve pain and gather x-rays if these have not been done recently. ADL dysfunction: OT will work on improving ability to perform ADLs (including assistive devices) to increase independence and decrease caregiver burden and improve functional transfers and mobility training. Difficulty walking: PT will work on gait training and proper use of assistive devices and advance as appropriate to use of stairs and outside ambulation on uneven surfaces. Unsteadiness on feet: PT will work on improving static and dynamic sitting and standing balance as well as proper use of assistive devices to decrease risk of falls. Abnormality of gait: PT will work to improve safety and efficiency of gait through neuromotor training and gait training along with instruction on proper use of assistive devices. Muscle weakness: PT & OT will work on strengthening exercises to improve functional strength including mixture of closed and open kinetic chain exercises. Debility: PT & OT will work on improving overall functional status to improve participation with ADLs, mobility and social involvement. Fatigue: PT & OT will work on improving endurance through aerobic exercises and therapeutic activity while monitoring patients tolerance for activity and vital signs as needed. DVT ppx: Heparin 3 times daily Pain: Continue physical modalities in therapy and pain medications as needed to achieve functional pain control. Sleep: Monitor and address as needed. Bowel: Monitor and address as needed. Appetite: Monitor and address as needed. Discharge planning: Pending therapy progress and care plan meeting. Will continue discussion with therapy team, SW, patient and family. Restrictions/ Precautions: Falls WB status: FWB Functional Hx: ADLs: Independent Cognition: Independent Mobility: No AD Barriers to Discharge: Decreased mobility and ability to perform self care, balance deficits, weakness Estimated Length of Stay: 1014 days Discharge Destination: Home alone
[2021-03-20] MEDS: HYDROcodone/ACETAMINOPHEN 10-325MG TAB PO PRN ×2 (14:58→22:20)
--- NOTE | 2021-03-20 15:28 | IRU Plan of Care ---
Interdisciplinary Plan of Care - IP IRU INTERDISCIPLINARY PLAN: [facility] Inpatient Rehab Unit Plan of Care IRU Interdisciplinary Care Plan Start: 03/17/21 17:37 Freq: Admission then PRN Status: Active Protocol: Document 03/20/21 15:02 TH (Rec: 03/20/21 15:04 TH [id number]) Interdisciplinary Problem List Interdisciplinary Problem List Interdisciplinary Problem List Impaired Mobility,Impaired Query Text:Answers will Trigger Problems Transfers,Impaired Safety and Outcomes on Worklist. IRU Interdisciplinary Care Plan Therapy Services Therapy Services Will Include: Physical Therapy Query Text:Patient will be seen for a minimum of 3 hours of daily therapy 5 out of 7 days a week. Therapy intensity may be adjusted within a 7 consecutive day period to effectively serve the individual needs of the patient. Treatment Frequency/Intensity/Duration Treatment Frequency 5 days per week Treatment Intensity 3 hours per day Treatment Duration 7-10 days Problem Area: Eating/Swallowing Eating/Swallowing Outcomes Eating/Swallowing Interventions Problem Area: Bathing/Grooming Bathing/Grooming Outcomes Improve [place] w/ Grooming,Improve [place] w/ Bathing Bathing/Grooming Interventions ADL Training,Use of Assistive Devices,Therapeutic Exercise, Therapeutic Activity, Neuromuscular Re-Education, Balance Work,Activity Tolerance Work,Patient/ Caregiver Education Problem Area: Dressing Dressing Outcomes Improve [place] w/ UB Dressing,Improve [place] w/ LB Dressing Dressing Interventions ADL Training,Use of Assistive Devices,Neuromuscular Re- Education,Therapeutic Exercise ,Balance Work,Patient/ Caregiver Education Problem Area: Mobility Mobility Outcomes Improve [place] w/ Bed Mobility,Improve [place] w/ Ambulation,Improve [place] w/ Stairs/Curb, Improve [place] w/ Wheelchair Mobility Interventions Therapeutic Exercise, Neuromuscular Re-Ed.,Use of Assistive Devices,Patient/ Caregiver Education,Bed Mobility Work,Gait Training,W/ C Mobility Work Problem Area: Transfers Transfers Outcomes Improve [place] w/ Bed Transfers,Improve [place] w/ Car Transfers Transfers Interventions Transfer Training,Therapeutic Exercise,Use of Assistive Devices,Patient/Caregiver Education Problem Area: Bowel/Bladder Managment Bowel/Bladder Outcomes Bowel/Bladder Interventions Problem Area: Toileting Toileting Outcomes Improve [place] w/ Toileting Toileting Interventions ADL Training,Balance Work,Use of Assistive Devices,Patient/ Caregiver Education Problem Area: Nutrition Nutrition Outcomes Nutrition Interventions Problem Area: Comprehension Comprehension Outcomes Comprehension Interventions Problem Area: Expression Expression Outcomes Expression Interventions Problem Area: Problem Solving Problem Solving Outcomes Problem Solving Interventions Problem Area: Memory Memory Outcomes Memory Interventions Problem Area: Pain Management Pain Management Outcomes Pain Management Interventions Problem Area: Knowledge Deficits Knowledge Deficits Outcomes Knowledge Deficits Interventions Problem Area: Skin/Tissue Integrity Skin/Tissue Integrity Outcomes Skin/Tissue Integrity Interventions Problem Area: Social Interaction Social Interaction Outcomes Social Interaction Interventions Problem Area: Adjustment to Disability Adjustment to Disability Outcomes Adjustment to Disability Interventions Problem Area: Discharge Concerns Discharge Concerns Outcomes Discharge w/ Necessary Equipment,Have Home Health/ Outpatient Services Discharge Concerns Interventions Discharge Planning,Equipment Assessment, Acquisition and Placement,Family/Caregiver Training Problem Area: Community Reintegration Community Reintegration Outcomes Community Reintegration Interventions Problem Area: Home Management Home Management Outcomes Improve [place] w/ Home Management Home Management Interventions Money Management Tasks,Meal Preparation,Clothing Care, Activity Tolerance Work,House Cleaning,Patient/Caregiver Education Problem Area: Safety Safety Outcomes Provide Safe Environment, Perform Selfcare Safely, Demonstrate Good Safety w/ Transfers/Mobility Safety Interventions Identify Fall Risk,[place] Pt. to Environment,Reduce Environmental Hazards Problem Area: Medication Education Medication Education Outcomes Medication Education Interventions Problem Area: Diabetes Education Diabetes Education Outcomes Diabetes Education Interventions Problem Area: Oxygenation Oxygenation Outcomes Oxygenation Interventions Problem Area: Cardiovascular Cardiovascular Outcomes Maintain or Improve Cardiovascular Status Cardiovascular Interventions Assess Vital Signs at least Every 4 hours Physician Only Medical Prognosis and Rehabilitation Potential (Completed by Physician) Good rehab potential, good prognosis This plan of care has been developed based on the findings from the pre- admission assessment, post admission physician evaluation, information gathered from the assessments from all therapy disciplines and other pertinent clinicians. The plan of care has been reviewed and discussed in collaboration with the interdisciplinary team. The plan of care will be reviewed and updated at least weekly.
[2021-03-21] MEDS: MECLIZINE 25 MG TAB PO SCH ×3 (06:06→21:34)
[2021-03-21] MEDS: HEPARIN 5,000 UNIT/1 ML VIAL SUB-Q SCH ×3 (06:07→21:32)
[2021-03-21] MEDS: hydrALAZINE 25 MG TAB PO SCH ×3 (06:07→23:47)
[2021-03-21] MEDS: HYDROcodone/ACETAMINOPHEN 10-325MG TAB PO PRN ×2 (09:51→16:31)
[2021-03-21] MEDS: LOSARTAN 50 MG TAB PO SCH (09:51)
[2021-03-21] MEDS: PANTOPRAZOLE 40 MG TAB PO SCH (09:52)
[2021-03-21] MEDS: DICLOFENAC SODIUM 1% TOPICAL GEL 100 GM TP SCH ×3 (09:52→23:50)
[2021-03-21] MEDS: SODIUM BICARBONATE 650 MG TAB PO SCH ×2 (09:52→21:32)
[2021-03-21] MEDS: CLOPIDOGREL 75 MG TAB PO SCH (09:52)
[2021-03-21] MEDS: METOPROLOL TARTRATE 50 MG TAB PO SCH ×2 (09:52→21:34)
[2021-03-21] MEDS: allopurinoL 100 MG TAB PO SCH (09:52)
[2021-03-21] MEDS: amLODIPine 10 MG TAB PO SCH (09:53)
[2021-03-21] MEDS: HYDROcodone/ACETAMINOPHEN 5-325 MG TAB PO PRN (23:47)
[2021-03-22] MEDS: MECLIZINE 25 MG TAB PO SCH ×3 (05:36→21:27)
[2021-03-22] MEDS: hydrALAZINE 25 MG TAB PO SCH ×3 (05:37→21:27)
[2021-03-22] MEDS: HEPARIN 5,000 UNIT/1 ML VIAL SUB-Q SCH ×2 (05:37→05:41)
[2021-03-22 07:12] LABS: Hematocrit 33.7 % (30.3-42.9); Hemoglobin 11.7 gm/dl (10.1-14.3); Mean Corpuscular HGB Conc 35 % (30-34); Mean Corpuscular Volume 103 fl (79-97); Platelet Count 277 K/mm3 (140-440); Red Blood Count 3.28 M/mm3 (3.65-5.03); Red Cell Distribution Width 13.7 % (13.2-15.2)
[2021-03-22 07:33] LABS: BUN/Creatinine Ratio 14; Blood Urea Nitrogen 14 mg/dL (7-17); Calcium 8.2 mg/dL (8.4-10.2); Hemolysis Index 3
[2021-03-22] MEDS ORDERED: ENOXAPARIN 30 MG/0.3 ML INJ SUB-Q SCH (08:00)
[2021-03-22] MEDS: DICLOFENAC SODIUM 1% TOPICAL GEL 100 GM TP SCH ×3 (09:36→21:28)
--- NOTE | 2021-03-22 09:47 | Progress Note ---
Subjective Date of service: 03/22/21 Principal diagnosis: Vestibular dysfunction Interval history: 70-year-old female who was admitted on 03/05/2021 for persistent dizziness and nausea and vomiting. Patient has a history of CVA, and initial CT head showed did not show any signs of acute CVA noted. Patient was noted to have chest pain and a nuclear medicine stress test was performed with results showing no ST changes and no chest pain. Brain MRI was performed showing moderate parenchymal volume loss, microvascular ischemic changes and no indication of recent infarct. Patient was started on meclizine 50 mg every 8 hours. Home antihypertensives were changed. Patient's blood pressure on the acute side has been labile ranging from systolic of 130s to 180s. After admission last night patient did have blood pressure of 221/112 for which as needed hydralazine was given. I was notified this a.m. of the blood pressure value. I will need to adjust blood pressure medications quickly in order to get the patient's blood pressure back under control. Currently her pressure is 138/65. Patient does have mild chronic kidney disease and was on metoprolol, losartan, hydralazine, amlodipine at home (does not remember dosing however did give me the name of Dr. Guillaume at the [facility] in [place], will attempt to call and confirm dosage), however on the acute care side she was on metoprolol and losartan only. We will look to restart home antihypertensives and monitor blood pressure closely for improvement while trying to avoid hypotensive episodes. Interval History: Patient is participating in therapy and making reasonable progress. Taking rest breaks as needed. +BM. Denies pain, palpitations, dyspnea, cough, N/V, weakness, or joint pain. Patient is concerned about the number of injections she gets for heparin. Discussed with her that she is on heparin versus Lovenox due to renal function however her renal function has been within normal limits. We will start Lovenox and monitor renal function closely. Vestibular dysfunction: Continue therapy for improvement in balance, ADLs and ambulation. Vestibular therapy as patient tolerates it. Continue meclizine. Patient states that dizziness is subsiding and much better when in bed, still giving her problems when standing with occasional loss of balance. We will asked therapy to do orthostatic checks to ensure that blood pressures not playing an issue as well. Chronic CVA: Continue secondary stroke prevention measures. No signs of worsening neurologic function, shoulder-hand syndrome, post stroke depression. Hypertension with initial hypertensive emergency: Medications have been adjusted to include patient's home dosing after calling the [facility] that [facility]. Appears that she is tolerating all doses of her current medication and blood pressure is improving. We will continue to monitor blood pressure on a close basis and adjust medications as needed to control her blood pressure. Goal less than 140/90 and avoid hypotension. CKD 3: Patient's renal labs have been normal since admission. She states that she was diagnosed with CKD 3 by an outside nurse case management. We will continue to avoid any nephrotoxic medications and monitor for worsening renal function. Headache: Headache seems to be variable, still does not respond well to Fioricet or Tylenol which the patient has used in the past on the acute care side as well as with us. Does state that [place] seems to allow her to at least tolerate the pain and drift off to sleep. Have discussed with her that we would not want to continue with increased dose of [place] ongoing and that we will continue to monitor and try to address the issues causing the headache. Back pain with radiation down right leg: Negative straight leg raise. In talking with the [facility] yesterday they do not have any recent imaging of the patient's back. Patient does state that recently she received lumbar epidural steroid injection which is in part what she believes caused some of the issues she is currently having. I do not think that the DEEDEE is connected to her current issues but we will continue to watch for any overt signs of issues coming from her low back and address as needed. If the patient does need further work-up and care she will need to have that done as an outpatient to include further MRIs and or other injections. May benefit from needle EMG/NCS. Right knee pain: X-ray ordered yesterday, image and report reviewed personally. Her knee actually looks to be in very good shape, uncertain why she had so much pain. Do not see joint space narrowing or significant arthritis, per the report there is minimal spurring noted in a couple of areas. Did discuss with the patient and we can trial Voltaren gel to see if that improves her knee pain. Seems slightly better today All records, vitals, labs and medications were reviewed. No other issues per patient, nursing or therapy. Objective - Exam Narrative Exam: MUSCULOSKELETAL SPECIALTY EXAM CONSTITUTIONAL: Well developed, well nourished, appropriately groomed EENT: Hearing intact to soft voice RESPIRATORY: Clear to auscultation bilaterally, no increased work of breathing CARDIOVASCULAR: Regular Rate/ Rhythm, no swelling, edema or tenderness in BUE or BLE. All extremities warm. GI: + bowel sounds, soft, NTTP, nondistended. INTEGUMENTARY: Normal, no lesion, rash, masses or bruising noted in extremities. MUSCULOSKELETAL: BUE and BLE normal without defect, crepitus, subluxation, effusion, arthritic changes or TTP. BUE 4+/5, good ROM, with normal tone. BLE 4+/5 good ROM, with normal tone NEURO: Slight left facial droop, tongue protrudes left. Sensation intact in all extremities with decreased sensation on the right extremities. No tremor noted in 4 extremities. POSTURE and GAIT: Sitting posture good. PSYCH: Alert, oriented x3, affect appears normal. Insight appears intact. - Constitutional Vitals: Vital Signs - 12hr 03/21/21 03/21/21 03/22/21 22:00 23:47 00:47 Temperature Pulse Rate 67 Respiratory 17 17 Rate Respiratory 17 Rate [Head] Respiratory 17 Rate [general pain] Blood Pressure 146/77 O2 Sat by Pulse Oximetry 03/22/21 03/22/21 03/22/21 04:33 05:37 07:41 Temperature 98.9 F Pulse Rate 66 74 Respiratory 17 16 Rate Respiratory Rate [Head] Respiratory Rate [general pain] Blood Pressure 134/60 142/70 O2 Sat by Pulse 99 Oximetry - Allied health notes Allied health notes reviewed: nursing, PT, OT FIMS assessment as documented by PT/OT/ST: Grooming Patient cleans teeth/dentures: Yes Patient [place]/brushes hair: Yes Patient washes, rinses and Yes dries face: Patient washes, rinses and Yes dries hands: Patient performs (no make-up/ 4/4 (100%) shaving): Grooming FIM Score 5. Supervision ([place] applies toothpaste or opens containers.) Toileting Toileting Device Commode over Toilet,Grab Bar Patient able to: Adjust clothes before,Clean self,Adjust clothes after Patient able to perform: 3/3 (100%) Toileting FIM Score 4. Minimal Assistance (Patient = 75% or more. Needs touching.) Social interaction/Memory/Problem solving Social Interaction FIM Score 5. Supervision (Needs supv. <10%. Needs encouragement to participate.) Memory FIM Score 5. Supervision (Needs cueing <10%, stressful/ unfamiliar situations.) Problem Solving FIM Score 5. Supervision (Needs cueing <10% to solve routine problems.) Transfers Mode of Locomotion: Wheelchair Bed/Chair/Wheelchair Transfers 4. Minimal Assistance (Patient = 75% or more. FIM Score Needs touching.) Locomotion- walk/wheelchair Ambulation Distance 170 Eating Eating FIM Score 5. Supervision/Set-Up (Needs help w/ con tainers, cutting meat, etc.) Dressing-Upper body Patient retrieves clothing Yes items: Upper Body Dressing FIM Score 5. Supv./Set-Up ([place] sets out clothes or applies pros./orth.) Dressing-lower body Patient retrieves clothing Yes items: Lower Body Dressing FIM Score 5. Supv./Set-Up ([place] sets out clothes or applies pros./orth.) - Labs CBC & Chem 7: 03/22/21 06:48 03/22/21 06:48 Labs: Laboratory Results - last 72 hr 03/22/21 03/22/21 06:48 06:48 WBC 8.6 RBC 3.28 L Hgb 11.7 Hct 33.7 MCV 103 H MCH 36 H MCHC 35 H RDW 13.7 Plt Count 277 Sodium 139 Potassium 3.6 Chloride 105.7 Carbon Dioxide 17 L Anion Gap 20 BUN 14 Creatinine 1.0 Estimated GFR > 60 BUN/Creatinine Ratio 14 Glucose 111 H Calcium 8.2 L Assessment and Plan Vestibular dysfunction: Continue therapy and improve patient's ability to perform ADLs and ambulation without loss of balance. Meclizine will be eloisa nued at current dosing with eye towards reducing dose as able. Vestibular therapy has been ordered. Old CVA: Continue secondary stroke prevention measures including antiplatelet, statin, blood pressure control. Hypertensive emergency: [facility] is currently taking losartan 100 mg daily, amlodipine 10 mg daily, hydralazine 50 mg 3 times daily, metoprolol 75 mg twice daily. We will restart these medications and monitor blood pressure and adjust as needed for normotension with goal of <140/90 while avoiding hypotension. CKD 3: Continue to monitor renal function which appears to be fairly well controlled currently. This was diagnosed by an outside nurse case management, avoid nephrotoxic medications. Nephrology consult if needed. Headache: Patient states that Fioricet is not touching the headache but the [place] does work. She is requesting to have higher doses of [place] for both the headache and the back pain and we will increase that for a brief period of time as discussed with the patient. Back pain with radiation down the right leg: Apparently patient had a MRI at the outside [facility], will attempt to get results of that imaging. Also underwent epidural steroid injection which she relates to the start of current symptoms. We will continue therapy and attempt symptomatic improvement. Right knee pain: We will try to find out if the [facility] has performed any knee x-rays in the past. This looks and feels like arthritis, will look to start Voltaren gel and further modalities to improve pain and gather x-rays if these have not been done recently. ADL dysfunction: OT will work on improving ability to perform ADLs (including assistive devices) to increase independence and decrease caregiver burden and improve functional transfers and mobility training. Difficulty walking: PT will work on gait training and proper use of assistive devices and advance as appropriate to use of stairs and outside ambulation on uneven surfaces. Unsteadiness on feet: PT will work on improving static and dynamic sitting and standing balance as well as proper use of assistive devices to decrease risk of falls. Abnormality of gait: PT will work to improve safety and efficiency of gait through neuromotor training and gait training along with instruction on proper use of assistive devices. Muscle weakness: PT & OT will work on strengthening exercises to improve functional strength including mixture of closed and open kinetic chain exercises. Debility: PT & OT will work on improving overall functional status to improve participation with ADLs, mobility and social involvement. Fatigue: PT & OT will work on improving endurance through aerobic exercises and therapeutic activity while monitoring patients tolerance for activity and vital signs as needed. DVT ppx: Lovenox Pain: Continue physical modalities in therapy and pain medications as needed to achieve functional pain control. Sleep: Monitor and address as needed. Bowel: Monitor and address as needed. Appetite: Monitor and address as needed. Discharge planning: Pending therapy progress and care plan meeting. Will continue discussion with therapy team, SW, patient and family. Restrictions/ Precautions: Falls WB status: FWB Functional Hx: ADLs: Independent Cognition: Independent Mobility: No AD Barriers to Discharge: Decreased mobility and ability to perform self care, bal ance deficits, weakness Estimated Length of Stay: 1014 days Discharge Destination: Home alone
[2021-03-22] MEDS: allopurinoL 100 MG TAB PO SCH (10:40)
[2021-03-22] MEDS: LOSARTAN 50 MG TAB PO SCH (10:43)
[2021-03-22] MEDS: METOPROLOL TARTRATE 50 MG TAB PO SCH ×2 (10:44→21:27)
[2021-03-22] MEDS: CLOPIDOGREL 75 MG TAB PO SCH (10:44)
[2021-03-22] MEDS: SODIUM BICARBONATE 650 MG TAB PO SCH ×2 (10:44→21:27)
[2021-03-22] MEDS: PANTOPRAZOLE 40 MG TAB PO SCH (10:44)
[2021-03-22] MEDS: amLODIPine 10 MG TAB PO SCH (10:45)
[2021-03-22] MEDS: HYDROcodone/ACETAMINOPHEN 10-325MG TAB PO PRN ×2 (10:54→19:21)
[2021-03-22] MEDS: ENOXAPARIN 40 MG/0.4 ML INJ SUB-Q SCH (15:38)
[2021-03-23] MEDS: hydrALAZINE 25 MG TAB PO SCH ×3 (05:49→22:09)
[2021-03-23] MEDS: MECLIZINE 25 MG TAB PO SCH ×3 (05:50→22:08)
--- NOTE | 2021-03-23 07:56 | Progress Note ---
Subjective Date of service: 03/23/21 Principal diagnosis: Vestibular dysfunction Interval history: 70-year-old female who was admitted on 03/05/2021 for persistent dizziness and nausea and vomiting. Patient has a history of CVA, and initial CT head showed did not show any signs of acute CVA noted. Patient was noted to have chest pain and a nuclear medicine stress test was performed with results showing no ST changes and no chest pain. Brain MRI was performed showing moderate parenchymal volume loss, microvascular ischemic changes and no indication of recent infarct. Patient was started on meclizine 50 mg every 8 hours. Home antihypertensives were changed. Patient's blood pressure on the acute side has been labile ranging from systolic of 130s to 180s. After admission last night patient did have blood pressure of 221/112 for which as needed hydralazine was given. I was notified this a.m. of the blood pressure value. I will need to adjust blood pressure medications quickly in order to get the patient's blood pressure back under control. Currently her pressure is 138/65. Patient does have mild chronic kidney disease and was on metoprolol, losartan, hydralazine, amlodipine at home (does not remember dosing however did give me the name of Dr. Guillaume at the [facility] [place], will attempt to call and confirm dosage), however on the acute care side she was on metoprolol and losartan only. We will look to restart home antihypertensives and monitor blood pressure closely for improvement while trying to avoid hypotensive episodes. Interval History: Patient is participating in therapy and making reasonable progress. Taking rest breaks as needed. +BM. Denies pain, palpitations, dyspnea, cough, N/V, weakness, or joint pain. Still having some instability with gait and standing however safety awareness seems to improved somewhat. Discussed with patient pos luz pending discharge. Also discussed the need to adhere to blood pressure medications and monitor her blood pressure values at home in order to help alleviate orthostatic changes as a confounding factor with dizziness. Currently the patient is on most of her home medications for blood pressure with 1 exception and she and I both discussed this and her need to follow-up with PCP for further monitoring and adjustment of blood pressure medications. Vestibular dysfunction: Continue therapy for improvement in balance, ADLs and ambulation. Vestibular therapy as patient tolerates it. Continue meclizine. Patient states that dizziness is subsiding and much better when in bed, still giving her problems when standing with occasional loss of balance. We will ask therapy to do orthostatic checks to ensure that blood pressures not playing an issue as well. Chronic CVA: Continue secondary stroke prevention measures. No signs of worsening neurologic function, shoulder-hand syndrome, post stroke depression. Folate deficiency: MCV and MCH were both noted to be elevated with recent checks of labs. B12 and folate levels were checked and the patient does have folate deficiency. Will replace and have the patient follow-up with PCP. Hypertension with initial hypertensive emergency: Medications have been adjusted to include patient's home dosing after calling the [facility]. Appears that she is tolerating all doses of her current medication and blood pressure is improving. We will continue to monitor blood pressure on a close basis and adjust medications as needed to control her blood pressure. Goal less than 140/90 and avoid hypotension. CKD 3: Patient's renal labs have been normal since admission. She states that she was diagnosed with CKD 3 by an outside [facility]. We will continue to avoid any nephrotoxic medications and monitor for worsening renal function. Headache: Headache seems to be variable, still does not respond well to Fioricet or Tylenol which the patient has used in the past on the acute care side as well as with us. Does seem improved over the last couple of days. Back pain with radiation down right leg: Negative straight leg raise. [facility] any recent [facility] of the patient's back. Patient does state that recently she received lumbar epidural steroid injection which is in part what she believes caused some of the issues she is currently having. I do not think that the DEEDEE is connected to her current issues but we will continue to watch for any overt signs of issues coming from her low back and address as needed. If the patient does need further work-up and care she will need to have that done as an outpatient to include further MRIs and or other injections. May benefit from needle EMG/NCS. Right knee pain: X-ray ordered yesterday, image and report reviewed personally. Her knee actually looks to be in very good shape, uncertain why she had so much pain. Do not see joint space narrowing or significant arthritis, per the report there is minimal spurring noted in a couple of areas. Did discuss with the patient and we can trial Voltaren gel to see if that improves her knee pain. Seems slightly better today All records, vitals, labs and medications were reviewed. No other issues per patient, nursing or therapy. Patient discussed during team conference. Safety awareness has improved slightly as have the stability while patient is standing. Still has issues with endurance and is not fully safe to be alone currently. Most likely will discha rge later this week. Patient will have family at home to assist her and we will need to get DME, most likely rolling walker at discharge. Patient was also benefit from a shower chair to avoid having falls while bathing due to dizziness. Discharge pending patient's further progress for the rest of the week. In total, more than 35 minutes were invested in patient care today with greater than 18 minutes counseling and coordinating care with the patient, therapy & nursing as stated in the note. Objective - Exam Narrative Exam: MUSCULOSKELETAL SPECIALTY EXAM CONSTITUTIONAL: Well developed, well nourished, appropriately groomed EENT: Hearing intact to soft voice RESPIRATORY: Clear to auscultation bilaterally, no increased work of breathing CARDIOVASCULAR: Regular Rate/ Rhythm, no swelling, edema or tenderness in BUE or BLE. All extremities warm. GI: + bowel sounds, soft, NTTP, nondistended. INTEGUMENTARY: Normal, no lesion, rash, masses or bruising noted in extremities. MUSCULOSKELETAL: BUE and BLE normal without defect, crepitus, subluxation, effusion, arthritic changes or TTP. BUE 4+/5, good ROM, with normal tone. BLE 4+/5 good ROM, with normal tone NEURO: Slight left facial droop, tongue protrudes left. Sensation intact in all extremities with decreased sensation on the right extremities. No tremor noted in 4 extremities. POSTURE and GAIT: Sitting posture good. PSYCH: Alert, oriented x3, affect appears normal. Insight appears intact. - Constitutional Vitals: Vital Signs - 12hr 03/22/21 03/22/21 03/23/21 21:27 22:00 04:53 Temperature Pulse Rate 78 Respiratory 17 Rate Respiratory 17 Rate [Head] Respiratory 17 Rate [general pain] Blood Pressure 140/70 Blood Pressure [Left] O2 Sat by Pulse Oximetry 03/23/21 03/23/21 05:25 05:49 Temperature 98.1 F Pulse Rate 72 74 Respiratory 16 Rate Respiratory Rate [Head] Respiratory Rate [general pain] Blood Pressure 129/68 Blood Pressure 128/61 [Left] O2 Sat by Pulse 94 Oximetry - Allied health notes Allied health notes reviewed: nursing, PT, OT FIMS assessment as documented by PT/OT/ST: Grooming Patient cleans teeth/dentures: Yes Patient [place]/brushes hair: Yes Patient washes, rinses and Yes dries face: Patient washes, rinses and Yes dries hands: Patient performs (no make-up/ / (100%) shaving): Grooming FIM Score 6. Modified [place] (Needs equipment/device . Extra time.) Toileting Toileting Device Commode over Toilet Patient able to: Adjust clothes before,Clean self,Adjust clothes after Patient able to perform: 3/3 (100%) Toileting FIM Score 6. Modified [place] (Needs equip. or prosth ./orth.) Social interaction/Memory/Problem solving Social Interaction FIM Score 6. Mod. [place] (Mostly appropriate. May need meds. No supv.) Memory FIM Score 6. Modified [place](Mild difficulty remembering people/routines.) Problem Solving FIM Score 6. Mod. [place] (Mild difficulty or needs more time w/ complex.) Transfers Mode of Locomotion: Wheelchair Bed/Chair/Wheelchair Transfers 5. Supervision (Needs supv. or set-up for FIM Score sliding board, foot rests.) Locomotion- walk/wheelchair Ambulation Distance 170 Eating Eating FIM Score 6. Modified [place] (Special consistency or uses device.) Dressing-Upper body Patient retrieves clothing Yes items: Upper Body Dressing FIM Score 5. Supv./Set-Up ([place] sets out clothes or applies pros./orth.) Dressing-lower body Patient retrieves clothing Yes items: Lower Body Dressing FIM Score 5. Supv./Set-Up ([place] sets out clothes or applies pros./orth.) - Labs CBC & Chem 7: 03/22/21 06:48 03/22/21 06:48 Labs: Laboratory Results - last 72 hr 03/22/21 03/22/21 06:48 06:48 WBC 8.6 RBC 3.28 L Hgb 11.7 Hct 33.7 MCV 103 H MCH 36 H MCHC 35 H RDW 13.7 Plt Count 277 Sodium 139 Potassium 3.6 Chloride 105.7 Carbon Dioxide 17 L Anion Gap 20 BUN 14 Creatinine 1.0 Estimated GFR > 60 BUN/Creatinine Ratio 14 Glucose 111 H Calcium 8.2 L Assessment and Plan Vestibular dysfunction: Continue therapy and improve patient's ability to perform ADLs and ambulation without loss of balance. Meclizine will be continued at current dosing with eye towards reducing dose as able. Vestibular therapy has been ordered. Old CVA: Continue secondary stroke prevention measures including antiplatelet, statin, blood pressure control. Hypertensive emergency: [facility], patient is currently taking losartan 100 mg daily, amlodipine 10 mg daily, hydralazine 50 mg 3 times daily, metoprolol 75 mg twice daily. We will restart these medications and monitor blood pressure and adjust as needed for normotension with goal of <140/90 while avoiding hypotension. CKD 3: Continue to monitor renal function which appears to be fairly well controlled currently. This was diagnosed by an outside dba, avoid nephrotoxic medications. Nephrology consult if needed. Headache: Patient states that Fioricet is not touching the headache but the Huson does work. She is requesting to have higher doses of Huson for both the headache and the back pain and we will increase that for a brief period of time as discussed with the patient. Folate deficiency: Replace folate have patient follow-up with PCP as an outpatient. MCV and MCH are both elevated. Vitamin B12 within normal limits. Back pain with radiation down the right leg: Apparently [facility], will attempt to get results of that imaging. Also underwent epidural steroid injection which she relates to the start of current symptoms. We will continue therapy and attempt symptomatic improvement. Right knee pain: We will try to find out if the [facility] has performed any knee x-rays in the past. This looks and feels like arthritis, will look to start Voltaren gel and further modalities to improve pain and gather x-rays if these have not been done recently. ADL dysfunction: OT will work on improving ability to perform ADLs (including a ssistive devices) to increase independence and decrease caregiver burden and improve functional transfers and mobility training. Difficulty walking: PT will work on gait training and proper use of assistive devices and advance as appropriate to use of stairs and outside ambulation on uneven surfaces. Unsteadiness on feet: PT will work on improving static and dynamic sitting and standing balance as well as proper use of assistive devices to decrease risk of falls. Abnormality of gait: PT will work to improve safety and efficiency of gait through neuromotor training and gait training along with instruction on proper use of assistive devices. Muscle weakness: PT & OT will work on strengthening exercises to improve functional strength including mixture of closed and open kinetic chain exer cises. Debility: PT & OT will work on improving overall functional status to improve participation with ADLs, mobility and social involvement. Fatigue: PT & OT will work on improving endurance through aerobic exercises and therapeutic activity while monitoring patients tolerance for activity and vital signs as needed. DVT ppx: Lovenox Pain: Continue physical modalities in therapy and pain medications as needed to achieve functional pain control. Sleep: Monitor and address as needed. Bowel: Monitor and address as needed. Appetite: Monitor and address as needed. Discharge planning: Pending therapy progress and care plan meeting. Will continue discussion with therapy team, SW, patient and family. Look to discharge towards the end of the week pending patient's further progression and improvement. Restrictions/ Precautions: Falls WB status: FWB Functional Hx: ADLs: Independent Cognition: Independent Mobility: No AD Barriers to Discharge: Decreased mobility and ability to perform self care, balance deficits, weakness Estimated Length of Stay: 1014 days Discharge Destination: Home alone with intermittent assistance from family
[2021-03-23] MEDS: LOSARTAN 50 MG TAB PO SCH (09:10)
[2021-03-23] MEDS: METOPROLOL TARTRATE 50 MG TAB PO SCH ×2 (09:10→22:09)
[2021-03-23] MEDS: SODIUM BICARBONATE 650 MG TAB PO SCH ×2 (09:11→22:10)
[2021-03-23] MEDS: CLOPIDOGREL 75 MG TAB PO SCH (09:11)
[2021-03-23] MEDS: allopurinoL 100 MG TAB PO SCH (09:11)
[2021-03-23] MEDS: PANTOPRAZOLE 40 MG TAB PO SCH (09:11)
[2021-03-23] MEDS: amLODIPine 10 MG TAB PO SCH (09:11)
[2021-03-23] MEDS: DICLOFENAC SODIUM 1% TOPICAL GEL 100 GM TP SCH ×3 (09:12→21:50)
[2021-03-23] MEDS: ENOXAPARIN 40 MG/0.4 ML INJ SUB-Q SCH (09:15)
[2021-03-23] MEDS: FOLIC ACID 1 MG TAB PO SCH (11:03)
[2021-03-23] MEDS: HYDROcodone/ACETAMINOPHEN 10-325MG TAB PO PRN ×2 (11:17→19:16)
[2021-03-24] MEDS: hydrALAZINE 25 MG TAB PO SCH ×3 (05:36→21:46)
[2021-03-24] MEDS: MECLIZINE 25 MG TAB PO SCH ×3 (05:36→21:47)
[2021-03-24] MEDS: amLODIPine 10 MG TAB PO SCH (09:05)
[2021-03-24] MEDS: LOSARTAN 50 MG TAB PO SCH (09:06)
[2021-03-24] MEDS: PANTOPRAZOLE 40 MG TAB PO SCH (09:06)
[2021-03-24] MEDS: FOLIC ACID 1 MG TAB PO SCH (09:06)
[2021-03-24] MEDS: HYDROcodone/ACETAMINOPHEN 10-325MG TAB PO PRN ×3 (09:07→21:50)
[2021-03-24] MEDS: METOPROLOL TARTRATE 50 MG TAB PO SCH ×2 (09:07→21:46)
[2021-03-24] MEDS: CLOPIDOGREL 75 MG TAB PO SCH (09:07)
[2021-03-24] MEDS: allopurinoL 100 MG TAB PO SCH (09:08)
[2021-03-24] MEDS: DICLOFENAC SODIUM 1% TOPICAL GEL 100 GM TP SCH ×3 (09:08→21:44)
[2021-03-24] MEDS: SODIUM BICARBONATE 650 MG TAB PO SCH ×2 (09:08→21:46)
[2021-03-24] MEDS: ENOXAPARIN 40 MG/0.4 ML INJ SUB-Q SCH (09:08)
[2021-03-24] MEDS: BUTALB/ACETAMINOPHEN/CAFFEINE TAB PO PRN (12:31)
--- NOTE | 2021-03-24 14:32 | Progress Note ---
Subjective Date of service: 03/24/21 Principal diagnosis: Vestibular dysfunction Interval history: 70-year-old female who was admitted on 03/05/2021 for persistent dizziness and nausea and vomiting. Patient has a history of CVA, and initial CT head showed did not show any signs of acute CVA noted. Patient was noted to have chest pain and a nuclear medicine stress test was performed with results showing no ST changes and no chest pain. Brain MRI was performed showing moderate parenchymal volume loss, microvascular ischemic changes and no indication of recent infarct. Patient was started on meclizine 50 mg every 8 hours. Home antihypertensives were changed. Patient's blood pressure on the acute side has been labile ranging from systolic of 130s to 180s. After admission last night patient did have blood pressure of 221/112 for which as needed hydralazine was given. I was notified this a.m. of the blood pressure value. I will need to adjust blood pressure medications quickly in order to get the patient's blood pressure back under control. Currently her pressure is 138/65. Patient does have mild chronic kidney disease and was on metoprolol, losartan, hydralazine, amlodipine at home (does not remember dosing however did give me the name of Dr. Guillaume at the [facility] in [place], will attempt to call and confirm dosage), however on the acute care side she was on metoprolol and losartan only. We will look to restart home antihypertensives and monitor blood pressure closely for improvement while trying to avoid hypotensive episodes. Interval History: Patient is participating in therapy and making reasonable progress. Taking rest breaks as needed. +BM. Denies pain, palpitations, dyspnea, cough, N/V, weakness, or joint pain. Improving with therapy, patient is able to walk up and down inclines without loss of balance or assistance today. Discussed with the patient that we will look to discharge on Monday to ensure that she is able to repeat this performance tomorrow. We will also work on getting home health arranged. Vestibular dysfunction: Continue therapy for improvement in balance, ADLs and ambulation. Vestibular therapy. Continue meclizine. Patient states that dizziness is subsiding and much better when in bed, improving with decrease epi sodes of dizziness while standing and no loss of balance today Chronic CVA: Continue secondary stroke prevention measures. No signs of worsening neurologic function, shoulder-hand syndrome, post stroke depression. Folate deficiency: MCV and MCH were both noted to be elevated with recent checks of labs. B12 and folate levels were checked and the patient does have folate deficiency. Will replace and have the patient follow-up with PCP. Hypertension with initial hypertensive emergency: Blood pressure improved on current dosing. Patient is primarily back on her home medications with the ex ception of metoprolol which has been decreased to 50 mg twice daily. We will continue to monitor blood pressure on a close basis and adjust medications as needed to control her blood pressure. Goal less than 140/90 and avoid hypotension. CKD 3: Patient's renal labs have been normal since admission. She states that she was diagnosed with CKD 3 by an outside change management analyst. We will continue to av oid any nephrotoxic medications and monitor for worsening renal function. Headache: Headache seems to be variable, still does not respond well to Fioricet or Tylenol which the patient has used in the past on the acute care side as well as with us. Does seem improved over the last couple of days. States that the work she is getting from O2 with massage in the upper traps and neck seems to help. Patient does seem to have some active areas of trigger point. Discussed with her that she [facility] her to [facility]&R in order to receive trigger point injections which may help as this does seem to have an occipital flavor to it. Back pain with radiation down right leg: Negative straight leg raise. [facility] do not have any recent imaging of the patient's back. Patient does state that recently she received lumbar epidural steroid injection which is in part what she believes caused some of the issues she is currently having. I do not think that the DEEDEE is connected to her current issues but we will continue to watch for any overt signs of issues coming from her low back and address as needed. If the patient does need further work-up and care she will need to have that done as an outpatient to include further MRIs and or other injections. May benefit from needle EMG/NCS. Right knee pain: X-ray ordered yesterday, image and report reviewed personally. Her knee actually looks to be in very good shape, uncertain why she had so much pain. Do not see joint space narrowing or significant arthritis, per the report there is minimal spurring noted in a couple of areas. Did discuss with the patient and we can trial Voltaren gel to see if that improves her knee pain. Seems better today All records, vitals, labs and medications were reviewed. No other issues per patient, nursing or therapy. Objective - Exam Narrative Exam: MUSCULOSKELETAL SPECIALTY EXAM CONSTITUTIONAL: Well developed, well nourished, appropriately groomed EENT: Hearing intact to soft voice RESPIRATORY: Clear to auscultation bilaterally, no increased work of breathing CARDIOVASCULAR: Regular Rate/ Rhythm, no swelling, edema or tenderness in BUE or BLE. All extremities warm. GI: + bowel sounds, soft, NTTP, nondistended. INTEGUMENTARY: Normal, no lesion, rash, masses or bruising noted in extremities. MUSCULOSKELETAL: BUE and BLE normal without defect, crepitus, subluxation, effusion, arthritic changes or TTP. BUE 4+/5, good ROM, with normal tone. BLE 4+/5 good ROM, with normal tone NEURO: Slight left facial droop, tongue protrudes left. Sensation intact in all extremities with decreased sensation on the right extremities. No tremor noted in 4 extremities. POSTURE and GAIT: Sitting posture good. Ambulation slightly slowed but no loss of balance noticed during trials up and down an incline. PSYCH: Alert, oriented x3, affect appears normal. Insight appears intact. - Constitutional Vitals: Vital Signs - 12hr 03/24/21 03/24/21 03/24/21 05:35 05:36 07:54 Temperature 98.8 F 98.3 F Pulse Rate 71 70 80 Respiratory 18 18 Rate Blood Pressure 147/70 147/70 138/65 O2 Sat by Pulse 97 94 Oximetry 03/24/21 03/24/21 03/24/21 09:05 09:06 09:07 Temperature Pulse Rate 80 80 80 Respiratory Rate Blood Pressure 138/65 138/65 138/65 O2 Sat by Pulse Oximetry 03/24/21 12:03 Temperature 98.8 F Pulse Rate 73 Respiratory 18 Rate Blood Pressure 126/63 O2 Sat by Pulse 97 Oximetry - Allied health notes Allied health notes reviewed: nursing, PT, OT FIMS assessment as documented by PT/OT/ST: Grooming Patient cleans teeth/dentures: Yes Patient [place]/brushes hair: Yes Patient washes, rinses and Yes dries face: Patient washes, rinses and Yes dries hands: Patient performs (no make-up/ 4/4 (100%) shaving): Grooming FIM Score 6. Modified [place] (Needs equipment/device . Extra time.) Toileting Toileting Device Commode over Toilet Patient able to: Adjust clothes before,Clean self,Adjust clothes after Patient able to perform: 3/ (100%) Toileting FIM Score 6. Modified [place] (Needs equip. or prosth ./orth.) Social interaction/Memory/Problem solving Social Interaction FIM Score 6. Mod. [place] (Mostly appropriate. May need meds. No supv.) Memory FIM Score 6. Modified [place](Mild difficulty remembering people/routines.) Problem Solving FIM Score 6. Mod. [place] (Mild difficulty or needs more time w/ complex.) Transfers Mode of Locomotion: Wheelchair Bed/Chair/Wheelchair Transfers 6. Modified [place] (Uses device, sliding FIM Score board, prosth./orth.) Locomotion- walk/wheelchair Ambulation Distance 170 Eating Eating FIM Score 6. Modified [place] (Special consistency or uses device.) Dressing-Upper body Patient retrieves clothing Yes items: Upper Body Dressing FIM Score 6. Modified [place] (Needs equipment, velcro or pros./orth.) Dressing-lower body Patient retrieves clothing Yes items: Lower Body Dressing FIM Score 6. Modified [place] (Needs equipment, velcro or pros./orth.) - Labs CBC & Chem 7: 03/22/21 06:48 03/22/21 06:48 Labs: Laboratory Results - last 72 hr 03/22/21 03/22/21 03/23/21 06:48 06:48 08:13 WBC 8.6 RBC 3.28 L Hgb 11.7 Hct 33.7 MCV 103 H MCH 36 H MCHC 35 H RDW 13.7 Plt Count 277 Sodium 139 Potassium 3.6 Chloride 105.7 Carbon Dioxide 17 L Anion Gap 20 BUN 14 Creatinine 1.0 Estimated GFR > 60 BUN/Creatinine Ratio 14 Glucose 111 H Calcium 8.2 L Vitamin B12 540.7 Folate 03/23/21 08:13 WBC RBC Hgb Hct MCV MCH MCHC RDW Plt Count Sodium Potassium Chloride Carbon Dioxide Anion Gap BUN Creatinine Estimated GFR BUN/Creatinine Ratio Glucose Calcium Vitamin B12 Folate 6.64 L Assessment and Plan Vestibular dysfunction: Continue therapy and improve patient's ability to perform ADLs and ambulation without loss of balance. Meclizine will be continued at current dosing with eye towards reducing dose as able. Vestibular therapy has been ordered. Old CVA: Continue secondary stroke prevention measures including antiplatelet, statin, blood pressure control. Hypertensive emergency: [facility], patient is currently taking losartan 100 mg daily, amlodipine 10 mg daily, hydralazine 50 mg 3 times daily, metoprolol 50 mg twice daily. We will restart these medications and monitor blood pressure and adjust as needed for normotension with goal of <140/90 while avoiding hypotension. CKD 3: Continue to monitor renal function which appears to be fairly well controlled currently. This was diagnosed by an outside change management analyst, avoid nephrotoxic medications. Nephrology consult if needed. Headache: Patient states that Fioricet is not touching the headache but the Lytle does work. She is requesting to have higher doses of Lytle for both the headache and the back pain and we will increase that for a brief period of time as discussed with the patient. Patient may benefit from trigger point injections. Recommended that she request the [facility] as an outpatient to trial trigger point injections for headache relief. Folate deficiency: Replace folate have patient follow-up with PCP as an outpatient. MCV and MCH are both elevated. Vitamin B12 within normal limits. Back pain with radiation down the right leg: Apparently patient [facility] outside [facility], will attempt to get results of that imaging. Also underwent epidural steroid injection which she relates to the start of current symptoms. We will continue therapy and attempt symptomatic improvement. Right knee pain: We will try to find out if the [facility] has [facility] any [facility] in the past. This looks and feels like arthritis, will look to start Voltaren gel and further modalities to improve pain and gather x-rays if these have not been done recently. ADL dysfunction: OT will work on improving ability to perform ADLs (including assistive devices) to increase independence and decrease caregiver burden and improve functional transfers and mobility training. Difficulty walking: PT will work on gait training and proper use of assistive devices and advance as appropriate to use of stairs and outside ambulation on uneven surfaces. Improved Unsteadiness on feet: PT will work on improving static and dynamic sitting and standing balance as well as proper use of assistive devices to decrease risk of falls. Abnormality of gait: PT will work to improve safety and efficiency of gait through neuromotor training and gait training along with instruction on proper use of assistive devices. Muscle weakness: PT & OT will work on strengthening exercises to improve functional strength including mixture of closed and open kinetic chain exercises. Debility: PT & OT will work on improving overall functional status to improve participation with ADLs, mobility and social involvement. Fatigue: PT & OT will work on improving endurance through aerobic exercises and therapeutic activity while monitoring patients tolerance for activity and vital signs as needed. DVT ppx: Lovenox Pain: Continue physical modalities in therapy and pain medications as needed to achieve functional pain control. Sleep: Monitor and address as needed. Bowel: Monitor and address as needed. Appetite: Monitor and address as needed. Discharge planning: Pending therapy progress and care plan meeting. Will continue discussion with therapy team, SW, patient and family. Look to discharge Monday. Restrictions/ Precautions: Falls WB status: FWB Functional Hx: ADLs: Independent Cognition: Independent Mobility: No AD Barriers to Discharge: Decreased mobility and ability to perform self care, balance deficits, weakness Estimated Length of Stay: 1014 days Discharge Destination: Home alone with intermittent assistance from family
[2021-03-25] MEDS: MECLIZINE 25 MG TAB PO SCH ×2 (06:17→15:55)
[2021-03-25] MEDS: hydrALAZINE 25 MG TAB PO SCH ×3 (06:17→23:01)
[2021-03-25] MEDS: HYDROcodone/ACETAMINOPHEN 10-325MG TAB PO PRN ×3 (06:23→22:58)
[2021-03-25] MEDS: LOSARTAN 50 MG TAB PO SCH (08:23)
[2021-03-25] MEDS: SODIUM BICARBONATE 650 MG TAB PO SCH ×2 (08:24→23:00)
[2021-03-25] MEDS: FOLIC ACID 1 MG TAB PO SCH (08:24)
[2021-03-25] MEDS: METOPROLOL TARTRATE 50 MG TAB PO SCH ×2 (08:24→23:00)
[2021-03-25] MEDS: amLODIPine 10 MG TAB PO SCH (08:25)
[2021-03-25] MEDS: PANTOPRAZOLE 40 MG TAB PO SCH (08:25)
[2021-03-25] MEDS: allopurinoL 100 MG TAB PO SCH (08:25)
[2021-03-25] MEDS: DICLOFENAC SODIUM 1% TOPICAL GEL 100 GM TP SCH ×3 (08:26→22:08)
[2021-03-25] MEDS: CLOPIDOGREL 75 MG TAB PO SCH (08:27)
[2021-03-25] MEDS: ENOXAPARIN 40 MG/0.4 ML INJ SUB-Q SCH (10:39)
--- NOTE | 2021-03-25 12:34 | Progress Note ---
Subjective Date of service: 03/25/21 Principal diagnosis: Vestibular dysfunction Interval history: 70-year-old female who was admitted on 03/05/2021 for persistent dizziness and nausea and vomiting. Patient has a history of CVA, and initial CT head showed did not show any signs of acute CVA noted. Patient was noted to have chest pain and a nuclear medicine stress test was performed with results showing no ST changes and no chest pain. Brain MRI was performed showing moderate parenchymal volume loss, microvascular ischemic changes and no indication of recent infarct. Patient was started on meclizine 50 mg every 8 hours. Home antihypertensives were changed. Patient's blood pressure on the acute side has been labile ranging from systolic of 130s to 180s. After admission last night patient did have blood pressure of 221/112 for which as needed hydralazine was given. I was notified this a.m. of the blood pressure value. I will need to adjust blood pressure medications quickly in order to get the patient's blood pressure back under control. Currently her pressure is 138/65. Patient does have mild chronic kidney disease and was on metoprolol, losartan, hydralazine, amlodipine at home (does not remember dosing however did give me the name of Dr. Guillaume at the OR in [place], will attempt to call and confirm dosage), however on the acute care side she was on metoprolol and losartan only. We will look to restart home antihypertensives and monitor blood pressure closely for improvement while trying to avoid hypotensive episodes. Interval History: Patient is participating in therapy and making reasonable progress. Taking rest breaks as needed. +BM. Denies pain, palpitations, dyspnea, cough, N/V, weakness, or joint pain. Doing much better and looking forward to discharge tomorrow. Patient is having a headache. Will decrease dose of meclizine which can cause headaches. Discussed with the patient that we will send her home with meclizine as needed versus scheduled. Seems to have improvement in dizziness as well. Vestibular dysfunction: Continue therapy for improvement in balance, ADLs and ambulation. Vestibular therapy. Continue meclizine at lower dose. Patient states that dizziness is subsiding and much better when in bed, improving with decrease episodes of dizziness while standing Chronic CVA: Continue secondary stroke prevention measures. No signs of worsening neurologic function, shoulder-hand syndrome, post stroke depression. Folate deficiency: MCV and MCH were both noted to be elevated with recent checks of labs. B12 and folate levels were checked and the patient does have folate deficiency. Will replace and have the patient follow-up with PCP. Hypertension with initial hypertensive emergency: Blood pressure improved on current dosing. Patient is primarily back on her home medications with the exception of metoprolol which has been decreased to 50 mg twice daily. We will continue to monitor blood pressure on a close basis and adjust medications as needed to control her blood pressure. Goal less than 140/90 and avoid hypotension. CKD 3: Patient's renal labs have been normal since admission. She states that she was diagnosed with CKD 3 by an outside tile picker. We will continue to avoid any nephrotoxic medications and monitor for worsening renal function. Headache: Headache seems to be variable, still does not respond well to Fioricet or Tylenol which the patient has used in the past on the acute care side as well as with us. Slightly worse today. Back pain with radiation down right leg: Negative straight leg raise. [facility] any recent [facility] of the patient's back. Patient does state that recently she received lumbar epidural steroid injection which is in part what she believes caused some of the issues she is currently having. I do not think that the DEEDEE is connected to her current issues but we will continue to watch for any overt signs of issues coming from her low back and address as needed. If the patient does need further work-up and care she will need to have that done as an outpatient to include further MRIs and or other injections. May benefit from needle EMG/NCS. Right knee pain: X-ray ordered yesterday, image and report reviewed personally. Her knee actually looks to be in very good shape, uncertain why she had so much pain. Do not see joint space narrowing or significant arthritis, per the report there is minimal spurring noted in a couple of areas. Did discuss with the patient and we can trial Voltaren gel to see if that improves her knee pain. Patient not complaining of knee pain today All records, vitals, labs and medications were reviewed. No other issues per patient, nursing or therapy. Objective - Exam Narrative Exam: MUSCULOSKELETAL SPECIALTY EXAM CONSTITUTIONAL: Well developed, well nourished, appropriately groomed EENT: Hearing intact to soft voice RESPIRATORY: Clear to auscultation bilaterally, no increased work of breathing CARDIOVASCULAR: Regular Rate/ Rhythm, no swelling, edema or tenderness in BUE or BLE. All extremities warm. GI: + bowel sounds, soft, NTTP, nondistended. INTEGUMENTARY: Normal, no lesion, rash, masses or bruising noted in extremities. MUSCULOSKELETAL: BUE and BLE normal without defect, crepitus, subluxation, effusion, arthritic changes or TTP. BUE 4+/5, good ROM, with normal tone. BLE 4+/5 good ROM, with normal tone NEURO: Slight left facial droop, tongue protrudes left. Sensation intact in all extremities with decreased sensation on the right extremities. No tremor noted in 4 extremities. POSTURE and GAIT: Sitting posture good. Ambulation slightly slowed but no loss of balance noticed during trials up and down an incline. PSYCH: Alert, oriented x3, affect appears normal. Insight appears intact. - Constitutional Vitals: Vital Signs - 12hr 03/25/21 03/25/21 03/25/21 04:45 06:17 07:40 Temperature 98.7 F 98.8 F Pulse Rate 74 74 74 Respiratory 16 18 Rate Blood Pressure 132/57 116/57 Blood Pressure 132/57 [Left] O2 Sat by Pulse 94 93 Oximetry 03/25/21 03/25/21 03/25/21 08:23 08:24 08:25 Temperature Pulse Rate 74 74 74 Respiratory Rate Blood Pressure 116/57 116/57 116/57 Blood Pressure [Left] O2 Sat by Pulse Oximetry 03/25/21 03/25/21 08:31 10:38 Temperature Pulse Rate 74 75 Respiratory Rate Blood Pressure 128/57 139/72 Blood Pressure [Left] O2 Sat by Pulse 97 100 Oximetry - Allied health notes Allied health notes reviewed: nursing, PT, OT FIMS assessment as documented by PT/OT/ST: Grooming Patient cleans teeth/dentures: Yes Patient [place]/brushes hair: Yes Patient washes, rinses and Yes dries face: Patient washes, rinses and Yes dries hands: Patient performs (no make-up/ 01/17 (100%) shaving): Grooming FIM Score 6. Modified [place] (Needs equipment/device . Extra time.) Toileting Toileting Device Commode over Toilet Patient able to: Adjust clothes before,Clean self,Adjust clothes after Patient able to perform: 3/3 (100%) Toileting FIM Score 6. Modified [place] (Needs equip. or prosth ./orth.) Social interaction/Memory/Problem solving Social Interaction FIM Score 6. Mod. [place] (Mostly appropriate. May need meds. No supv.) Memory FIM Score 6. Modified [place](Mild difficulty remembering people/routines.) Problem Solving FIM Score 6. Mod. [place] (Mild difficulty or needs more time w/ complex.) Transfers Mode of Locomotion: Wheelchair Bed/Chair/Wheelchair Transfers 6. Modified [place] (Uses device, sliding FIM Score board, prosth./orth.) Locomotion- walk/wheelchair Ambulation Distance 170 Eating Eating FIM Score 6. Modified [place] (Special consistency or uses device.) Dressing-Upper body Patient retrieves clothing Yes items: Upper Body Dressing FIM Score 6. Modified [place] (Needs equipment, velcro or pros./orth.) Dressing-lower body Patient retrieves clothing Yes items: Lower Body Dressing FIM Score 6. Modified [place] (Needs equipment, velcro or pros./orth.) - Labs CBC & Chem 7: 03/22/21 06:48 03/22/21 06:48 Labs: Laboratory Results - last 72 hr 03/23/21 03/23/21 08:13 08:13 Vitamin B12 540.7 Folate 6.64 L Assessment and Plan Vestibular dysfunction: Continue therapy and improve patient's ability to perform ADLs and ambulation without loss of balance. Meclizine will be continued at current dosing with eye towards reducing dose as able. Vestibular therapy has been ordered. Old CVA: Continue secondary stroke prevention measures including antiplatelet, statin, blood pressure control. Hypertensive emergency: [facility], patient is currently taking losartan 100 mg daily, amlodipine 10 mg daily, hydralazine 50 mg 3 times daily, metoprolol 50 mg twice daily. We will restart these medications and monitor blood pressure and adjust as needed for normotension with goal of <140/90 while avoiding hypotension. CKD 3: Continue to monitor renal function which appears to be fairly well controlled currently. This was diagnosed by an outside tile picker, avoid nephrotoxic medications. Nephrology consult if needed. Headache: Patient states that Fioricet is not touching the headache but the [place] does work. She is requesting to have higher doses of [place] for both the headache and the back pain and we will increase that for a brief period of time as discussed with the patient. Patient may benefit from trigger point injections. Recommended that she request the [facility] her to [facility]R as an outpatient to trial trigger point injections for headache relief. Folate deficiency: Replace folate have patient follow-up with PCP as an outpatient. MCV and MCH are both elevated. Vitamin B12 within normal limits. Back pain with radiation down the right leg: Apparently patient [facility] outside [facility], will attempt to get results of that imaging. Also underwent epidural steroid injection which she relates to the start of current symptoms. We will continue therapy and attempt symptomatic improvement. Right knee pain: We will try to find out if the [facility] has performed any knee x-rays in the past. This looks and feels like arthritis, will look to start Voltaren gel and further modalities to improve pain and gather x-rays if these have not been done recently. ADL dysfunction: OT will work on improving ability to perform ADLs (including assistive devices) to increase independence and decrease caregiver burden and improve functional transfers and mobility training. Difficulty walking: PT will work on gait training and proper use of assistive devices and advance as appropriate to use of stairs and outside ambulation on uneven surfaces. Improved Unsteadiness on feet: PT will work on improving static and dynamic sitting and standing balance as well as proper use of assistive devices to decrease risk of falls. Abnormality of gait: PT will work to improve safety and efficiency of gait through neuromotor training and gait training along with instruction on proper use of assistive devices. Muscle weakness: PT & OT will work on strengthening exercises to improve functional strength including mixture of closed and open kinetic chain exercises. Debility: PT & OT will work on improving overall functional status to improve participation with ADLs, mobility and social involvement. Fatigue: PT & OT will work on improving endurance through aerobic exercises and therapeutic activity while monitoring patients tolerance for activity and vital signs as needed. DVT ppx: Lovenox Pain: Continue physical modalities in therapy and pain medications as needed to achieve functional pain control. Sleep: Monitor and address as needed. Bowel: Monitor and address as needed. Appetite: Monitor and address as needed. Discharge planning: Pending therapy progress and care plan meeting. Will continue discussion with therapy team, SW, patient and family. Look to discharge Monday. Restrictions/ Precautions: Falls WB status: FWB Functional Hx: ADLs: Independent Cognition: Independent Mobility: No AD Barriers to Discharge: Decreased mobility and ability to perform self care, balance deficits, weakness Estimated Length of Stay: 1014 days Discharge Destination: Home alone with intermittent assistance from family
[2021-03-25] MEDS: BUTALB/ACETAMINOPHEN/CAFFEINE TAB PO PRN ×2 (15:59→22:58)
[2021-03-25] MEDS: HYDROcodone/ACETAMINOPHEN 5-325 MG TAB PO PRN (17:58)
[2021-03-26] MEDS: hydrALAZINE 25 MG TAB PO SCH (06:00)
[2021-03-26] MEDS: BUTALB/ACETAMINOPHEN/CAFFEINE TAB PO PRN (06:05)
[2021-03-26] MEDS: HYDROcodone/ACETAMINOPHEN 10-325MG TAB PO PRN (06:06)
[2021-03-26] MEDS: PANTOPRAZOLE 40 MG TAB PO SCH (08:03)
[2021-03-26] MEDS: FOLIC ACID 1 MG TAB PO SCH (08:03)
[2021-03-26] MEDS: METOPROLOL TARTRATE 50 MG TAB PO SCH (08:04)
[2021-03-26] MEDS: CLOPIDOGREL 75 MG TAB PO SCH (08:04)
[2021-03-26] MEDS: amLODIPine 10 MG TAB PO SCH (08:04)
[2021-03-26] MEDS: LOSARTAN 50 MG TAB PO SCH (08:04)
[2021-03-26] MEDS: SODIUM BICARBONATE 650 MG TAB PO SCH (08:04)
[2021-03-26] MEDS: MECLIZINE 25 MG TAB PO SCH (08:04)
[2021-03-26] MEDS: allopurinoL 100 MG TAB PO SCH (08:04)
[2021-03-26 08:05] VITALS: BP 156/82
[2021-03-26] MEDS: DICLOFENAC SODIUM 1% TOPICAL GEL 100 GM TP SCH (08:05)
[2021-03-26] MEDS: HYDROcodone/ACETAMINOPHEN 5-325 MG TAB PO PRN (08:15)
--- NOTE | 2021-03-26 08:32 | Discharge Summary ---
Providers - Providers Date of Admission: 03/17/21 12:29 Date of discharge: 03/26/21 Attending physician: KATIA RONQUILLO III, MD 03/17/21 12:29 Occupational Therapy Evaluate and Treat [CONS] Routine Comment: Reason For Exam: ADL dysfunction Physical Therapy Evaluation and Treat [CONS] Routine Comment: Reason For Exam: Mobility Dysfunction 03/17/21 12:32 Consult to Case Management [CONS] Routine Services Needed at Discharge: Home Health Services Notified:: sudheer notified [facility] Reason for admission: Vertigo, debility Condition: Good Hospital course: 70-year-old female who was admitted on 03/05/2021 for persistent dizziness and nausea and vomiting. Patient has a history of CVA, and initial CT head showed did not show any signs of acute CVA noted. Patient was noted to have chest pain and a nuclear medicine stress test was performed with results showing no ST changes and no chest pain. Brain MRI was performed showing moderate parenchymal volume loss, microvascular ischemic changes and no indication of recent infarct. Patient was started on meclizine 50 mg every 8 hours. Home antihypertensives were changed. Patient's blood pressure on the acute side has been labile ranging from systolic of 130s to 180s. After admission last night patient did have blood pressure of 221/112 for which as needed hydralazine was given. I was notified this a.m. of the blood pressure value. I will need to adjust blood pressure medications quickly in order to get the patient's blood pressure back under control. Currently her pressure is 138/65. Patient does have mild chronic kidney disease and was on metoprolol, losartan, hydralazine, amlodipine at home (does not remember dosing however did give me the name of Dr[facility]illa[facility] at [facility] [place], will attempt to call and confirm dosage), however on the acute care side she was on metoprolol and losartan only. We will look to restart home antihypertensives and monitor blood pressure closely for improvement while trying to avoid hypotensive episodes. This morning just prior to discharge, the patient states that she has been having episodes at home which sound consistent to paroxysmal nocturnal dyspnea. She has these episodes approximately once or twice every 2 weeks. She describes classically sleeping on 3-4 pillows at night. Also states the family tells her that she does snore and with her body habitus may also have sleep apnea. Recommended to her that based on the's last-minute admissions by her that she would do well to follow-up with her primary care physician [facility] the [facility] and state the same symptoms that she told me for further work-up and possibly to obtain a sleep study. Vestibular dysfunction: Patient's vertigo has continued to improve with vestibular therapy and meclizine. Patient has fewer episodes of dizziness currently and when she does have them is able to recover much quicker now. Discussed with her the need to continue the meclizine on an as-needed basis and hopefully with continued therapy she will improve going forward. Chronic CVA: Continue secondary stroke prevention measures. No worsening effects from the prior CVA. Folate deficiency: MCV and MCH were both noted to be elevated with recent checks of labs. B12 and folate levels were checked and the patient does have folate deficiency. Replaced and have the patient follow-up with PCP. Hypertension with initial hypertensive emergency: Blood pressure improved on current dosing. Patient is primarily back on her home medications with the exception of metoprolol which has been decreased to 50 mg twice daily. We will continue to monitor blood pressure on a close basis and adjust medications as needed to control her blood pressure. Goal less than 140/90 and avoid hypotension. CKD 3: Patient's renal labs have been normal since admission. She states that she was diagnosed with CKD 3 by an outside ict programmer. We will continue to avoid any nephrotoxic medications and monitor for worsening renal function. She continues on sodium bicarbonate and those levels were slightly low throughout her stay.. Headache: Headache seems to be variable, still does not respond well to Fioricet or Tylenol which the patient has used in the past on the acute care side as well as with us. Improved today, could be related to possibly undiagnosed SHIRAZ and possibly exacerbated by meclizine. Patient does state that these headaches were present prior to coming to the hospital and taking meclizine. Of note, the patient did have some improvement in her headache when occupational therapy was giving therapeutic massage at trigger points. On palpation she did seem to have some few discrete trigger points and may benefit from a visit to a PM&R physician in order to be evaluated for possible trigger point injections. Back pain with radiation down right leg: Negative straight leg raise. In talking with [facility] they do not have any recent imaging of the patient's back. Patient does state that recently she received lumbar epidural steroid injection which is in part what she believes caused some of the issues she is currently having. I do not think that the DEEDEE is connected to her current issues but we will continue to watch for any overt signs of issues coming from her low back and address as needed. If the patient does need further work-up and care she will need to have that done as an outpatient to include further MRIs and or other injections. She did not have any worsening signs or symptoms related to her low back pain or radiation into the leg. May benefit from needle EMG/NCS to rule out radiculopathy. May also consider MRI if recent imaging is not obtained within the clinic setting. Right knee pain: X-ray ordered, image and report reviewed personally. Her knee actually looks to be in very good shape, uncertain why she had so much pain. Do not see joint space narrowing or significant arthritis, per the report there is minimal spurring noted in a couple of areas. Did discuss with the patient and we can trial Voltaren gel to see if that improves her knee pain. Patient not complaining of knee pain today, advised her to continue to utilize Voltaren gel on a as needed basis As far as therapy, patient progressed to modified independence with PT and OT. She was able to ambulate on uneven surfaces, up and down ramps and on level surfaces with out assistive device or assistance from therapist at time of discharge. Will discharge patient home with home health in order to make sure that she transitions well into her home environment without any further issues. Disposition: DC-30 STILL A PATIENT Final Discharge Diagnosis (Prints w/discharge instructions): Vertigo, debility, chronic CVA, Hypertension, CKD3 Time spent for discharge: >30mins Core Measure Documentation - Palliative Care Palliative Care/ Comfort Measures: Not Applicable - Core Measures Any of the following diagnoses?: stroke (Chronic ), history only - Stroke Discharge Requirements Statin for LDL = or >70 mg/dl on DC: Yes Anticoag for atrial fib/atrial flutter: Not Applicable Antithrombotic for ischemic stroke: Yes Exam - Physical Exam Narrative exam: MUSCULOSKELETAL SPECIALTY EXAM CONSTITUTIONAL: Well developed, well nourished, appropriately groomed EENT: Hearing intact to soft voice RESPIRATORY: Clear to auscultation bilaterally, no increased work of breathing CARDIOVASCULAR: Regular Rate/ Rhythm, no swelling, edema or tenderness in BUE or BLE. All extremities warm. GI: + bowel sounds, soft, NTTP, nondistended. INTEGUMENTARY: Normal, no lesion, rash, masses or bruising noted in extremities. MUSCULOSKELETAL: BUE and BLE normal without defect, crepitus, subluxation, effusion, arthritic changes or TTP. BUE 4+/5, good ROM, with normal tone. BLE 4+/5 good ROM, with normal tone NEURO: Slight left facial droop, tongue protrudes left. Sensation intact in all extremities with decreased sensation on the right extremities. No tremor noted in 4 extremities. POSTURE and GAIT: Sitting posture good. Ambulation slightly slowed but no loss of balance noted. PSYCH: Alert, oriented x3, affect appears normal. Insight appears intact. - Constitutional Vitals: Temp Pulse Resp BP Pulse Ox 98.5 F 73 18 156/82 95 03/26/21 07:07 03/26/21 08:04 03/26/21 08:15 03/26/21 08:04 03/26/21 07:07 Plan Activity: fall precautions Diet: regular Special Instructions: record daily BP diary (And follow-up with values with PCP), physical therapy, occupational therapy, home health RN Care Plan Goals: Patient will need to follow-up with PCP for consideration of work-up on a number of items that she disclosed on the day of discharge. At the time examination on day of discharge patient disclosed that she has what sounds like classic symptoms of paroxysmal nocturnal dyspnea. States that she sleeps on 3-4 pillows and wakes up 1-2 times every 2 weeks gasping for air. Also states that her family states that she is fairly heavy snorer, this could also reflect obstructive sleep apnea. Patient would benefit from further work- up and possible sleep study for further delineation of true diagnoses. Patient also benefit from a referral to PM&R for consideration of trigger point injections. Patient has had chronic headaches which seem to have an occipital neuralgia flavor to them and on examination during her stay with us she did have some trigger points that were tender to palpation and when therapeutic massage was given by occupational therapy did seem to ease her headache. She may also want to follow-up with him for knee pain and low back pain with radiation down the right leg. Apparently in the past she has received an DEEDEE but stated that it was not very helpful. In the interim, we have requested home health to continue seeing her so that they can continue to help her transition home and improve her functional status. Also need to follow-up with PCP for monitoring of blood pressure. Initially when she was admitted on the rehab floor she had hypertensive emergency due to medications being adjusted prior to coming to us. We were able to reach [facility] and restart her on all of her home medications with the exception of metoprolol which was decreased to 50 mg twice daily versus the 75 mg twice daily. After this adjustment her blood pressure corrected and has been in a very good range since. Based on her current heart rate, increasing metoprolol back to her home dose may be a little much and cause her to become bradycardic and possibly affect her vertigo as well. Patient was also found to be deficient in folate with an elevated MCV/MCH. Vitamin B12 was within normal limits, folate replacement was started and may need to be rechecked within a couple of weeks. Follow up with: NATALYA CAMPBELLFAY MD [facility] [Primary Care Provider] - 7 Days Prescriptions: AtorvaSTATin [Lipitor] 40 mg PO QHS #30 tablet amLODIPine 10 mg PO QDAY #30 tablet Meclizine [Antivert] 25 mg PO Q8H PRN #30 tablet PRN Reason: Vertigo hydrALAZINE [Apresoline TAB] 75 mg PO Q8HR #180 tablet Losartan [Cozaar] 100 mg PO QDAY #60 tablet Folic Acid [Folvite] 1 mg PO QDAY #30 tablet Metoprolol [Lopressor TAB] 50 mg PO BID #60 tablet HYDROcodone/APAP 5-325 [Meddy[place] 5-325 mg TAB] 1 each PO Q6H PRN #15 tablet PRN Reason: Pain, Moderate (4-6) Clopidogrel [Plavix] 75 mg PO QDAY #30 tablet Pantoprazole [Protonix TAB] 40 mg PO QDAC #30 tablet Sodium Bicarbonate 650 mg PO BID #60 tablet allopurinoL [Zyloprim] 100 mg PO QDAY #30 tablet
[2021-03-26] MEDS ORDERED: MECLIZINE 25 MG TAB PO PRN (09:00)
== END 2021-03-26 11:00 | disposition home or self-care (01) | DRG 948 ==
LOC: 3A 11:37 → UNDOADMIN 11:37 → 3B 12:29
PROVIDERS: ADMIT Physical Medicine & Rehabilitation; ATTEND Physical Medicine & Rehabilitation
DX: R53.81 Other malaise (principal); I16.1 Hypertensive emergency; H81.90 Unspecified disorder of vestibular function, unspecified ear; N18.30 Chronic kidney disease, stage 3 unspecified; Z60.2 Problems related to living alone; M54.9 Dorsalgia, unspecified; I12.9 Hypertensive chronic kidney disease with stage 1 through stage 4 chronic kidney disease, or unspecified chronic kidney disease; M10.9 Gout, unspecified; M25.561 Pain in right knee; R26.81 Unsteadiness on feet; R26.9 Unspecified abnormalities of gait and mobility; R51.9 Headache, unspecified; M62.81 Muscle weakness (generalized); Z83.3 Family history of diabetes mellitus; Z82.49 Family history of ischemic heart disease and other diseases of the circulatory system; Z90.49 Acquired absence of other specified parts of digestive tract; Z90.710 Acquired absence of both cervix and uterus; Z88.0 Allergy status to penicillin; Z88.5 Allergy status to narcotic agent; Z88.8 Allergy status to other drugs, medicaments and biological substances; Z79.899 Other long term (current) drug therapy; Z79.84 Long term (current) use of oral hypoglycemic drugs; Z88.6 Allergy status to analgesic agent; Z86.73 Personal history of transient ischemic attack (TIA), and cerebral infarction without residual deficits
CPT/HCPCS: 36415; 80048; 80053; 82607; 82747; 85025; 85027; G0378; A9270-GY; J0360; J1644; J1650